=== PATIENT | male | born 1975 ===

== ENCOUNTER 2025-02-26 13:36 | Inpatient (IN) | payer OTHER, SELFPAY ==
[2025-02-26] VITALS (13 sets, daily range): BP systolic 67–134; BP diastolic 25–87; PULSE 80–140; RESP 12–28; TEMP 36.7–37.3; O2SAT 93–100; BMI 27.4
--- NOTE | ~2025-02-26 | CT_ITS ---
CLINICAL HISTORY: sepsis unclear etiology CT chest without IV contrast. COMPARISON: XR chest dated 02/26/25 at 15:26 EDT FINDINGS: Thyroid nodule present along the isthmus measuring 2.0 cm. No supraclavicular or axillary lymphadenopathy. Normal chest wall. Ascending aorta and main pulmonary artery are normal in caliber. No pericardial effusion. Normal esophagus. No mediastinal lymphadenopathy. No pleural effusion. Minimal atelectasis along the posterior lower lobes. Trachea and central airways are clear. No significant bronchial wall thickening. No bronchiectasis. Visualized portions of the upper abdomen are unremarkable. Flowing marginal osteophytes along the midthoracic spine. No acute fracture or suspicious bone lesion. IMPRESSION: 1. Minimal atelectasis along the posterior lower lobes. 2. Thyroid nodule measuring up to 2.0 cm. Recommend correlation with nonemergent thyroid ultrasound if not already performed. This document has been electronically signed by: Chandu Wilcox MD on 02/26/2025 16:45:10
--- NOTE | ~2025-02-26 | XR_ITS ---
CLINICAL HISTORY: tachycardic, altered. Single view of the chest. COMPARISON: None FINDINGS: Right IJ central venous line tip terminates proximal SVC. Low lung volumes. Borderline cardiomegaly. Bronchial wall thickening. No pleural effusion. No pneumothorax. No acute fracture. IMPRESSION: 1. Low lung volumes. 2. Bronchial wall thickening. Nonspecific finding can be seen with pulmonary edema or a multifocal infectious or inflammatory process. This document has been electronically signed by: Chandu Wilcox MD on 02/26/2025 15:56:55
--- NOTE | ~2025-02-26 | CT_ITS ---
CLINICAL HISTORY: sepsis unclear etiology CT abdomen and pelvis without IV contrast. COMPARISON: None FINDINGS: Minimal atelectasis along the lung bases. Normal gallbladder. Liver is enlarged with right lobe measuring 19.1 cm. Noncontrast appearance of the spleen, pancreas and adrenal glands are unremarkable. Right renal cystic lesion measuring 2.0 cm. No hydronephrosis or hydroureter. No renal or ureteral calculus. Appendix is not definitively identified. Mild colonic diverticulosis without evidence of diverticulitis. No mesenteric or retroperitoneal lymphadenopathy. Normal abdominal aorta. Adame catheter present within the contracted urinary bladder. No inguinal lymphadenopathy. Small fat containing umbilical hernia. Mild lower lumbar spondylosis. No acute fracture or suspicious bone lesion. IMPRESSION: 1. No acute intra-abdominal or pelvic findings. No evidence of bowel obstruction. No evidence of renal obstruction. 2. Colonic diverticulosis without evidence of diverticulitis. This document has been electronically signed by: Chandu Wilcox MD on 02/26/2025 16:46:48
--- NOTE | ~2025-02-26 | XR_ITS ---
CLINICAL HISTORY: hypoxia Chest radiograph, 1 view Comparison: CR - XR CHEST 1V - 02/26/25 15:26 EDT Findings: The cardiomediastinal silhouette is not enlarged. Pulmonary vascularity is unremarkable. No focal consolidation or effusion. No pneumothorax. Unchanged right IJ line. IMPRESSION: No acute cardiopulmonary findings. This document has been electronically signed by: Carlin Max DO on 02/27/2025 12:35:27
--- NOTE | ~2025-02-26 | CT_ITS ---
CLINICAL HISTORY: ams noin focal CT head without contrast. COMPARISON: None FINDINGS: The visualized paranasal sinuses are clear. The mastoid air cells are clear. No calvarial fracture. No evidence for mass or mass effect. No intracranial hemorrhage or abnormal extra-axial fluid collection. No evidence of hydrocephalus. The basilar cisterns are patent. Posterior fossa appears unremarkable. IMPRESSION: 1. No acute intracranial findings. This document has been electronically signed by: Chandu Wilcox MD on 02/26/2025 16:47:45
--- NOTE | 2025-02-26 13:47 | ECG_ITS ---
Test Reason : Overdose Blood Pressure : */* mmHG Vent. Rate : 122 BPM Atrial Rate : 122 BPM P-R Int : 160 ms QRS Dur : 92 ms QT Int : 326 ms P-R-T Axes : 58 -23 32 degrees QTcB Int : 464 ms Sinus tachycardia Minimal voltage criteria for LVH, may be normal variant ( R in aVL ) Nonspecific ST abnormality Abnormal ECG No previous ECGs available Referred By: Keith oGnzales Electronically Signed By: Mukul Martins
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
--- NOTE | 2025-02-26 13:57 | PC.NURSE ---
PT BELONGINGS one bag locked in [facility] port shelf 2
[2025-02-26] MEDS: Lactated Ringers 1,000 ML 999 ML IV ×4 (14:00→14:50)
[2025-02-26 14:02] LABS: MANUAL DIFF FLAG NO
[2025-02-26 14:09] LABS: Basophils Absolute Auto 0.1 X10*3/uL (0.0-0.2); Basophils Percent Auto 0.3 % (0-2); Eosinophils Percent Auto 0.2 % (0-4); Hematocrit 45.6 % (42.0-52.0); Imm Gran Abs Auto 0.19 X10*3/uL (0.00-0.03); Imm Gran Pct Auto 1.2 % (0.0-0.4); Lymphocytes Absolute Auto 3.1 X10*3/uL (1.2-4.9); Lymphocytes Percent Auto 19.7 % (20-40); Mean Corpuscular HGB Conc 32.9 g/dl (31.0-36.0); Mean Corpuscular Volume 94.2 fL (80.0-98.0); Mean Platelet Volume 11.4 fL (9.4-12.4); Monocytes Absolute Auto 0.9 X10*3/uL (0.1-1.2); Neutrophils Absolute Auto 11.4 x10*3/uL (2.0-8.3); Neutrophils Percent Auto 72.6 % (45-73); Platelet Count 246 X10*3/uL (160-400); Red Blood Count 4.84 X10*6/uL (4.60-5.80); Red Cell Distribution Width 13.3 % (11.0-16.0); White Blood Count 15.7 X10*3/uL (4.8-10.8)
[2025-02-26 14:31] LABS: Salicylate < 5.0 mg/dL (15-30)
[2025-02-26 14:37] LABS: Troponin-I High Sensitivity 26.3 ng/L (<3.5-35.0)
[2025-02-26 14:43] LABS: Alanine Aminotransferase 27 U/L (0-40); Albumin Level 4.9 g/dL (3.5-5.0); Alkaline Phosphatase 74 U/L (39-117); Anion Gap 32 (12-20); Aspartate Amino Transferase 34 U/L (5-37); Bilirubin Total 0.4 mg/dL (0.0-1.0); Blood Urea Nitrogen 19 mg/dL (9-16); Calcium 9.2 mg/dL (8.4-10.2); Carbon Dioxide 6 mmol/L (22-29); Chloride 107 mmol/L (96-108); Creatinine Clr Calc Pharmacy 56.3; Estimated Glomerular Filt Rate 45; Ethanol < 10 mg/dL; Glucose Random 187 mg/dL (60-115); Magnesium 3.6 mg/dL (1.6-2.6); Potassium 4.8 mmol/L (3.3-5.1); Sodium 140 mmol/L (135-145); Thyroid Stimulating Hormone 2.05 uIU/mL (0.32-4.0); Total Protein 7.9 g/dL (6.5-8.0)
[2025-02-26 14:45] LABS: C Reactive Protein < 0.10 mg/dL (< or = 0.50)
[2025-02-26] MEDS: Piperacillin Sodium/Tazobactam 3.375 GM in 0.9 % Sodium Chloride 50 ML IV (14:49)
[2025-02-26] MEDS: vancomycin/NS 2,000 MG/500 ML PLAST..BAG 250 MG IV (14:50)
[2025-02-26] MEDS: Sodium Bicarbonate 8.4% 50 MEQ/50 ML SYRINGE IVPUSH (14:57)
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
[2025-02-26] MEDS: diazePAM 10 MG/2 ML CARTRIDGE 5 MG IVPUSH (15:05)
--- NOTE | 2025-02-26 15:16 | PC.NURSE ---
Valium given and RIJ central line placed without difficulty. Patient tolerated procedure well.
[2025-02-26 15:18] LABS: Amphetamine Screen Urine Not Detected (Not Detect); Barbiturates, Urine Not Detected (Not Detect); Benzodiazepines Screen Urine POSITIVE (Not Detect); Buprenorphine Scr Not Detected (Not Detect); Cannabinoid Screen Urine Not Detected (Not Detect); Cocaine Screen Urine POSITIVE (Not Detect); Fentanyl, urine Not Detected (Not Detect); Methadone Screen, Urine Not Detected (Not Detect); Opiate Screen Urine Not Detected (Not Detect); Oxycodone Screen Urine Not Detected (Not Detect); Phencyclidine Screen Urine Not Detected (Not Detect)
[2025-02-26 15:20] LABS: Erythrocyte Sedimentation Rate 2 MM/HR (0-15)
[2025-02-26 15:22] LABS: Lactic Acid 15.7 mmol/L (0.5-2.0)
[2025-02-26 15:49] LABS: VBG Base Excess -1.4 mmol/L; VBG HCO3 23 mmol/L (22-26); VBG pCO2 39 mmHg; VBG pH 7.37 (7.32-7.43); VBG pO2 54 mmHg
[2025-02-26 15:54] LABS: Venous Blood Gas Refer to POC result
--- NOTE | 2025-02-26 16:14 | MHC.EDTECH ---
PATIENT WOULD LIKE THE RN TO CALL HIS TORREY CELL: HOME:
[2025-02-26 16:41] LABS: Anion Gap 14 (12-20); Blood Urea Nitrogen 16 mg/dL (9-16); Calcium 8.5 mg/dL (8.4-10.2); Carbon Dioxide 23 mmol/L (22-29); Chloride 112 mmol/L (96-108); Estimated Glomerular Filt Rate > 60; Glucose Random 83 mg/dL (60-115); Potassium 3.5 mmol/L (3.3-5.1); Sodium 145 mmol/L (135-145)
[2025-02-26 16:43] LABS: Lactic Acid 2.6 mmol/L (0.5-2.0)
--- NOTE | 2025-02-26 16:46 | P.HPHOSP_ITS ---
History of Present Illness Date of Service: 02/26/25 Chief Complaint: Seizure 50-year-old man presented to the ER obtunded. Patient was found in a hotel and with Sher running around naked and confused and was tackled by staff and/or police. Patient was given Valium. He presented obtunded to the ER with hypotension, lactic acidosis of 15.7, bicarb of 6, blood pressure as low as 67/27. He was given 4 L of IV fluids with almost complete resolution of lab abnormalities. Patient was able to be interviewed, he was much more awake but he stated that he does not remember what happened today. He reports that he went to the hotel yesterday because he was fighting with his . Apparently in the hotel there was drug paraphernalia found and he received admitted but did not confirm what type of drugs he was using. In speaking with his she was unaware of this situation, she denied knowing of any drug use but stated that the patient has been very depressed and sometimes she will hear him talking to himself alone. Patient was started on vancomycin and Zosyn empirically, given sodium bicarb. Plan will be to admit patient for further management and treatment of shock with hypotension likely secondary to seizure. Review of Systems 2 Review of Systems: Denies any recent fever chills or decrease in appetite respiratory denies any shortness of breath or cough cardiovascular denied chest pain gastrointestinal denies any dysphagia abdominal pain nausea vomiting or diarrhea genitourinary denies any dysuria frequency or hematuria musculoskeletal denies any joint pain or swelling neuropsych denies any weakness or seizures all other systems reviewed are negative [facility] Medical History (Updated 02/26/25 @ 17:06 by Jessika Call NP) Substance abuse Depression Surgical History (Updated 02/26/25 @ 17:06 by Jessika Call NP) History of cataract surgery Social History (System 11/30/24 @ 14:31 by Eleanor Jauregui) Advance Directives: No Advance Directives Information Provided: No Meds Allergies Allergy/AdvReac Type Severity Reaction Status Date / Time iodine [IODINE] Allergy Severe ANAPHYLAXIS Verified 02/26/25 13:50 shellfish derived Allergy Unknown ALLERGIC Verified 02/26/25 13:50 [SHELLFISH DERIVED] Active Medications: Current Medications Acetaminophen (Acetaminophen 325 Mg Tablet) 650 mg PO Q6H PRN PRN Reason: Pain, Mild 1-3,fever,headache Calcium Carbonate (Calcium Carbonate 750 Mg Tab.Chew) 750 mg PO Q4H PRN PRN Reason: Heartburn Heparin Sodium (Porcine) (Heparin Sodium,Porcine 5,000 Unit/Ml Vial) 5,000 unit SUBCUT Q12H ANNALISE Norepinephrine Bitartrate (Levophed) 8 mg in 250 mls @ 0 mls/hr IVCONT .Q0M ANNALISE; Protocol Magnesium Hydroxide (Milk Of Magnesia 30 Ml Oral.Susp) 30 ml PO DAILY PRN PRN Reason: Constipation Melatonin (Melatonin 3 Mg Tablet) 6 mg PO BEDTIME PRN PRN Reason: Insomnia Sodium Chloride (0.9 % Sodium Chloride Flush 3 Ml Syringe) 3 ml IVFLUSH QSHIFT [facility] Home Medications ?Medication ?Instructions ?Recorded ?Confirmed ?Last Taken ?Type bupropion HCl 150 mg 24 hr tablet, 150 mg PO QAM 02/26/25 Unknown History extended release timolol maleate 0.5 % eye drops 1 drp ophthalmic-Right BID 02/26/25 Unknown History Physical Exam 2 Vital Signs and Narrative: Vital Signs: Last Vital Signs Temp 98.1 F 02/26/25 16:15 Pulse 93 02/26/25 16:15 Resp 22 H 02/26/25 16:15 BP 115/77 02/26/25 16:15 Pulse Ox 97 02/26/25 16:15 O2 Del Method Nasal Cannula 02/26/25 16:15 O2 Flow Rate 3 02/26/25 16:15 BMI result Body Mass Index 27.4 Appearing in no acute distress head is normocephalic atraumatic eyes pupils are PERRLA sclera is anicteric mouth throat mucous membranes are intact and moist neck is supple no lymphadenopathy, no JVD noted lung sounds are clear to auscultation heart regular rate rhythm, clear S1, S2 positive bowel sounds, abdomen is soft, nontender neuro patient is alert x3, no focal deficits Results Labs 02/26/25 13:58 02/26/25 16:13 Labs: Laboratory Results - last 24 hr 02/26/25 02/26/25 02/26/25 13:58 14:39 15:03 MCV 94.2 MCH 31.0 MCHC 32.9 RDW 13.3 Plt Count 246 MPV 11.4 Immature Gran % (Auto) 1.2 H Neut % (Auto) 72.6 Lymph % (Auto) 19.7 L Millard % (Auto) 6.0 Eos % (Auto) 0.2 Baso % (Auto) 0.3 Lymph # (Auto) 3.1 Millard # (Auto) 0.9 Eos # (Auto) 0.0 Baso # (Auto) 0.1 Abs Immat Gran (auto) 0.19 H Absolute Neuts (auto) 11.4 H Absolute Nucleated RBC 0.000 Nucleated RBC % (auto) 0.0 ESR 2 VBG pH VBG pCO2 VBG pO2 VBG HCO3 VBG O2 Saturation VBG Base Excess Anion Gap 32 H Estim Creat Clear Calc 56.3 Estimated GFR 45 Random Glucose 187 H Lactic Acid 15.7 H* Calcium 9.2 Magnesium 3.6 H* Total Bilirubin 0.4 AST 34 ALT 27 Alkaline Phosphatase 74 Total Creatine Kinase 527 H C-Reactive Protein < 0.10 Total Protein 7.9 Albumin 4.9 TSH 2.05 Salicylates < 5.0 L Urine Opiates Screen Not Detected Ur Buprenorphine Scrn Not Detected Ur Oxycodone Screen Not Detected Urine Methadone Screen Not Detected Urine Fentanyl Screen Not Detected Ur Barbiturates Screen Not Detected Ur Phencyclidine Scrn Not Detected Ur Amphetamines Screen Not Detected U Benzodiazepines Scrn POSITIVE H Urine Cocaine Screen POSITIVE H U Marijuana (THC) Screen Not Detected Ethyl Alcohol < 10 02/26/25 02/26/25 15:42 16:13 MCV MCH MCHC RDW Plt Count MPV Immature Gran % (Auto) Neut % (Auto) Lymph % (Auto) Millard % (Auto) Eos % (Auto) Baso % (Auto) Lymph # (Auto) Millard # (Auto) Eos # (Auto) Baso # (Auto) Abs Immat Gran (auto) Absolute Neuts (auto) Absolute Nucleated RBC Nucleated RBC % (auto) ESR VBG pH 7.37 VBG pCO2 39 VBG pO2 54 VBG HCO3 23 VBG O2 Saturation 82.0 VBG Base Excess -1.4 Anion Gap 14 Estim Creat Clear Calc 76.0 Estimated GFR > 60 Random Glucose 83 Lactic Acid 2.6 H* Calcium 8.5 D Magnesium Total Bilirubin AST ALT Alkaline Phosphatase Total Creatine Kinase C-Reactive Protein Total Protein Albumin TSH Salicylates Urine Opiates Screen Ur Buprenorphine Scrn Ur Oxycodone Screen Urine Methadone Screen Urine Fentanyl Screen Ur Barbiturates Screen Ur Phencyclidine Scrn Ur Amphetamines Screen U Benzodiazepines Scrn Urine Cocaine Screen U Marijuana (THC) Screen Ethyl Alcohol Assessment and Plan (1) Cocaine intoxication: Status: Acute (2) Septic shock: Status: Acute Plan 50 year old man admitted with shock secondary to drugs and likely seizure. He was found in a Hotel, naked and confused, he was apparently tackled by staff. Seizure related shock with hypotension and obtundation no sepsis likely he had seizure and was in postictal state for EMS, he also received valium so likely exacerbation obtundation he denied hx of seizures uses cocaine Also takes Wellbutrin which can lower seizure threshold received 4 liters IV fluids in ED hypotension has resolved on empiric antibiotics, no obvious source of infection blood cx drawn more awake and alert now Seizure precautions Monitor on telemetry Lactic acidosis Likely secondary to seizure Significantly improved after IV fluids Metabolic acidosis Bicarb initially of 6, lactic acid 15.7, likely from seizure, hypotension Received 4 L of IV fluids in the ER Repeat bicarb of 23, lactic acid 2.6 Mental health with suicide ideation on Wellbutrin at home, unknown if he takes regularly Sitter ordered care team when medically clear Substance abuse addiction team consultation DVT prophylaxis with Heparin Full code Quality Stroke Does the patient have a stroke diagnosis?: No VTE Prior VTE?: No VTE Risk Level:: Medical - moderate - high VTE Device Contraindication: Treatment Not Indicated VTE Drug Contraindication: N/A - Med Ordered
[2025-02-26 16:51] LABS: Reflex Lactate? Lactic Acid Added
--- NOTE | 2025-02-26 16:56 | PHA.MEDREC ---
Addendum entered by Brooke Stallings [facility] 02/26/25 16:59: REVIEWED BY PHARMACIST Original Note: Pharmacy Consult ? Medication Reconciliation Pharmacy has completed the medication reconciliation. Spoke with Ratna over the phone with an project executive. She confirmed bupropion 150 mg daily. She said he is only using 1 eye drop bid in the right eye, he is no longer using the eye drop prescribed before his eye surgery (ketorolac).
--- NOTE | 2025-02-26 17:30 | PHA.PROG ---
Admission Date/Time: February 26, 2025 16:49 Indication: Weight in k.5 kg Adjusted body weight in Kg: [place] body weight in Kg: Obesity Dosing Indication % IBW: Serum Creatinine - Last 168 Hours 02/26/25 02/26/25 13:58 16:13 Creatinine 1.62 H 1.20 Estimated CrCl and GFR - Last 168 Hours 02/26/25 02/26/25 13:58 16:13 Estim Creat Clear Calc 56.3 76.0 Estimated GFR 45 > 60 Vancomycin Loading Dose: 2000 MG Current Vancomycin Dosing Regimen: 1000 MG Q 12 HOURS Vancomycin Monitoring using AUC goal of 400 - 600 range with trough as surrogate marker: Date and Time for next Vancomycin Level to be drawn: 02/27/25 1200 Pharmacist Comments on Vancomycin Plan: Vancomycin dosing will take advantage of Scandid as a clinical decision support tool that uses Bayesian modeling to calculate individual patient's pharmacokinetic parameters and forecast the patient's drug concentration time course with the target goal AUC 24 range of 400 - 600 mg/L/hr.
[2025-02-26 18:19] LABS: Reflex Lactate? Lactic Acid Added
[2025-02-26] MEDS: Heparin Sodium,Porcine 5,000 UNIT/ML VIAL 5000 UNIT SUBCUT (18:24)
--- NOTE | 2025-02-26 18:26 | PC.NURSE ---
Family at the bedside
[2025-02-26 18:58] LABS: ~Lactic Acid-LAB USE ONLY 1.6 mmol/L (0.5-2.0)
[2025-02-26 19:06] LABS: Reflex Lactate? 2 Y
[2025-02-26 19:40] LABS: ~Lactic Acid-LAB USE ONLY 1.8 mmol/L (0.5-2.0)
[2025-02-26] MEDS: Morphine Sulfate 2 MG/ML CARTRIDGE IVPUSH (20:45)
--- NOTE | 2025-02-26 21:28 | MHC.EDTECH ---
approx 2400ml emptied from moreira bag
--- NOTE | 2025-02-26 23:37 | PC.NURSE ---
Assumed care of this Pt at 2300.
[2025-02-27] VITALS (7 sets, daily range): BP systolic 121–144; BP diastolic 82–96; PULSE 78–93; RESP 16–20; TEMP 36.3–37.1; O2SAT 93–100; BMI 31.8
[2025-02-27] MEDS: Piperacillin Sodium/Tazobactam 3.375 GM in 0.9 % Sodium Chloride 50 ML IV ×5 (00:27→23:03)
[2025-02-27] MEDS: 0.9 % Sodium Chloride Flush 3 ML SYRINGE IVFLUSH ×4 (00:28→23:03)
[2025-02-27] MEDS: vancomycin HCL 1,000 MG in 0.9 % Sodium Chloride 250 ML 270 MG IV ×2 (01:19→15:24)
[2025-02-27 05:42] LABS: Estimated Glomerular Filt Rate > 60
[2025-02-27] MEDS: Heparin Sodium,Porcine 5,000 UNIT/ML VIAL 5000 UNIT SUBCUT ×2 (06:13→17:01)
[2025-02-27] MEDS: Acetaminophen 325 MG TABLET 650 MG PO (06:20)
--- NOTE | 2025-02-27 07:48 | PC.NURSE ---
this nurse took over patient care at 645, patient a&ox3, library monitor nsr, vss, pt currently on room air O2 st 96%. 1:1 sitter at bedside, pt states he has 7-8/10 back pain upon the reassessment of the tylenol that was given by prior shift. pt has inpt bed- report has been given and pt to be brought to room
--- NOTE | 2025-02-27 08:17 | HE.PHANOTE ---
JOYA ROGERS Patients level is due 02/27 @1200, will continue with current dose of 1000 mg Q12H. PAtients renal function has improved from yesterday. Predicted AUC 503
[2025-02-27 12:45] LABS: Vancomycin Random 10.8 mcg/mL (15-20)
--- NOTE | 2025-02-27 14:58 | MHC.RECOVRN ---
?Went to meet with pt. in room 483-1 following a consultation request received for cocaine use.? Received assistance from glass laminating operator Darwin Morgan. Pt was BIBA on 02/26 from a parking lot where he was running around unclothed. In pt's motel room police found paraphernalia of crack. Pt brought to ED for Eval. Pt was later admitted to the medical floor for?further management and treatment of shock with hypotension likely secondary to seizure. Pt was in bed awake and alert and appeared comfortable. Pt reports that he was at a hotel drinking and had a Mental Health episode which led him to not remember a lot. His tox screen was positive for cocaine and pt. admits that he could have possibly used this and just does not remember.? He reported he used to use cocaine in the past but has not used it for many years. Pt accepted a folder of resources for LELAND.? He declined any harm reduction supplies stating that it was a one time thing . Patient declines MStUD initiation?and declines appt for outpatient LELAND treatment. Information was left and pt will reach out for any other needs. Denies any further needs at this time. Report to nurse Becerril. T/W available PRN
--- NOTE | 2025-02-27 15:56 | MHC.CM.PN ---
Addendum entered by Desire Loving 02/27/25 16:05: PCP IS DR ZAHIDA BRAGA Original Note: Patient BIBA DX OD cocaine use Patient lives with SO. He is independent with all functional mobility. A new HCP has been documented. DP Home self care. Recovery nurse has provided community resource information. SO will provide transportation home.
[2025-02-28] MEDS: vancomycin HCL 1,000 MG in 0.9 % Sodium Chloride 250 ML 270 MG IV (02:20)
[2025-02-28 04:00] VITALS: BP 127/88; PULSE 69; RESP 16; TEMP 36.8; O2SAT 98
[2025-02-28] MEDS: Piperacillin Sodium/Tazobactam 3.375 GM in 0.9 % Sodium Chloride 50 ML IV ×2 (05:22→11:23)
[2025-02-28] MEDS: Heparin Sodium,Porcine 5,000 UNIT/ML VIAL 5000 UNIT SUBCUT (05:40)
[2025-02-28 07:03] LABS: Creatinine Clr Calc Pharmacy 90.7; Estimated Glomerular Filt Rate > 60
[2025-02-28 08:00] VITALS: BP 134/97; PULSE 74; RESP 16; TEMP 36.4; O2SAT 95
--- NOTE | 2025-02-28 08:54 | P.PNIM_ITS ---
Subjective Subjective Date of Service: 02/27/25 Review of Systems Follow up Seizure and hypotension better, more awake and aware sitter in room Physical Exam 2 Vital Signs: Vital Signs: Last Vital Signs Temp 98.2 F 02/28/25 04:00 Pulse 74 02/28/25 08:00 Resp 16 02/28/25 08:00 BP 134/97 H 02/28/25 08:00 Pulse Ox 95 02/28/25 08:00 O2 Del Method Room Air 02/28/25 04:00 O2 Flow Rate 4 02/27/25 05:51 BMI result Body Mass Index 31.8 Appearing in no acute distress lung sounds are clear to auscultation heart regular rate rhythm, clear S1, S2 positive bowel sounds, abdomen is soft, nontender neuro patient is alert x3, no focal deficits Objective Data Active Medications Acetaminophen (Acetaminophen 325 Mg Tablet) 650 mg PO Q6H PRN PRN Reason: Pain, Mild 1-3,fever,headache Last Admin: 02/27/25 06:20 Dose: 650 mg Documented By: TICO Calcium Carbonate (Calcium Carbonate 750 Mg Tab.Chew) 750 mg PO Q4H PRN PRN Reason: Heartburn Heparin Sodium (Porcine) (Heparin Sodium,Porcine 5,000 Unit/Ml Vial) 5,000 unit SUBCUT Q12H [facility] Last Admin: 02/28/25 05:40 Dose: 5,000 unit Documented By: YAZ Vancomycin HCl 1,000 mg/ (Sodium Chloride) 270 mls @ 270 mls/hr IV Q12H [facility] Last Infusion: 02/28/25 03:21 Dose: Infused Documented By: YAZ Piperacillin Sod/Tazobactam (Sod 3.375 gm/ Sodium Chloride) 50 mls @ 100 mls/hr IV Q6H [facility] Last Infusion: 02/28/25 05:52 Dose: Infused Documented By: YAZ Magnesium Hydroxide (Milk Of Magnesia 30 Ml Oral.Susp) 30 ml PO DAILY PRN PRN Reason: Constipation Melatonin (Melatonin 3 Mg Tablet) 6 mg PO BEDTIME PRN PRN Reason: Insomnia Pharmacy Consult (Consult Rx Vancomycin Dosing) 1 each MISCELLANE DAILY PRN PRN Reason: Consult order Sodium Chloride (0.9 % Sodium Chloride Flush 3 Ml Syringe) 3 ml IVFLUSH QSHIFT [facility] Last Admin: 02/27/25 23:03 Dose: 3 ml Documented By: YAZ Labs 02/26/25 13:58 02/28/25 05:40 Labs: Laboratory Results - last 24 hr 02/27/25 02/28/25 12:11 05:40 Hold Purple Top SEE NOTE Estim Creat Clear Calc 90.7 Estimated GFR > 60 Random Vancomycin 10.8 L Microbiology Microbiology Results: Microbiology 02/26/25 14:39 Blood Culture - Preliminary Blood - Venous No growth after 24 hours. 02/26/25 14:39 Blood Culture - Preliminary Blood - Venous No growth after 24 hours. Assessment and Plan (1) Cocaine intoxication: Status: Acute Plan 50 year old man admitted with shock secondary to drugs and likely seizure. He was found in a Hotel, naked and confused, he was apparently tackled by staff. Seizure related shock with hypotension and obtundation no sepsis likely he had seizure and was in postictal state for EMS, he also received valium so likely exacerbation obtundation he denied hx of seizures uses cocaine Also takes Wellbutrin which can lower seizure threshold received 4 liters IV fluids in ED hypotension has resolved on empiric antibiotics, no obvious source of infection blood cx drawn more awake and alert now Seizure precautions Monitor on telemetry Lactic acidosis Likely secondary to seizure Significantly improved after IV fluids Metabolic acidosis Bicarb initially of 6, lactic acid 15.7, likely from seizure, hypotension Received 4 L of IV fluids in the ER Repeat bicarb of 23, lactic acid 2.6 Mental health with suicide ideation on Wellbutrin at home, unknown if he takes regularly Sitter ordered care team when medically clear Substance abuse addiction team consultation DVT prophylaxis with Heparin Full code Quality Stroke Does the patient have a stroke diagnosis?: No VTE Prior VTE?: No VTE Risk Level:: Medical - moderate - high VTE Device Contraindication: Treatment Not Indicated VTE Drug Contraindication: N/A - Med Ordered
[2025-02-28] MEDS: 0.9 % Sodium Chloride Flush 3 ML SYRINGE IVFLUSH (08:55)
--- NOTE | 2025-02-28 08:58 | P.PNIM_ITS ---
Subjective Subjective Date of Service: 02/28/25 Review of Systems Follow up Seizure and hypotension better, more awake and aware sitter in room Physical Exam 2 Vital Signs: Vital Signs: Last Vital Signs Temp 98.2 F 02/28/25 04:00 Pulse 74 02/28/25 08:00 Resp 16 02/28/25 08:00 BP 134/97 H 02/28/25 08:00 Pulse Ox 95 02/28/25 08:00 O2 Del Method Room Air 02/28/25 04:00 O2 Flow Rate 4 02/27/25 05:51 BMI result Body Mass Index 31.8 Appearing in no acute distress lung sounds are clear to auscultation heart regular rate rhythm, clear S1, S2 positive bowel sounds, abdomen is soft, nontender neuro patient is alert x3, no focal deficits Objective Data Active Medications Acetaminophen (Acetaminophen 325 Mg Tablet) 650 mg PO Q6H PRN PRN Reason: Pain, Mild 1-3,fever,headache Last Admin: 02/27/25 06:20 Dose: 650 mg Documented By: TICO Calcium Carbonate (Calcium Carbonate 750 Mg Tab.Chew) 750 mg PO Q4H PRN PRN Reason: Heartburn Heparin Sodium (Porcine) (Heparin Sodium,Porcine 5,000 Unit/Ml Vial) 5,000 unit SUBCUT Q12H [facility] Last Admin: 02/28/25 05:40 Dose: 5,000 unit Documented By: YAZ Vancomycin HCl 1,000 mg/ (Sodium Chloride) 270 mls @ 270 mls/hr IV Q12H [facility] Last Infusion: 02/28/25 03:21 Dose: Infused Documented By: YAZ Piperacillin Sod/Tazobactam (Sod 3.375 gm/ Sodium Chloride) 50 mls @ 100 mls/hr IV Q6H [facility] Last Infusion: 02/28/25 05:52 Dose: Infused Documented By: YAZ Magnesium Hydroxide (Milk Of Magnesia 30 Ml Oral.Susp) 30 ml PO DAILY PRN PRN Reason: Constipation Melatonin (Melatonin 3 Mg Tablet) 6 mg PO BEDTIME PRN PRN Reason: Insomnia Pharmacy Consult (Consult Rx Vancomycin Dosing) 1 each MISCELLANE DAILY PRN PRN Reason: Consult order Sodium Chloride (0.9 % Sodium Chloride Flush 3 Ml Syringe) 3 ml IVFLUSH QSHIFT [facility] Last Admin: 02/27/25 23:03 Dose: 3 ml Documented By: YAZ Labs 02/26/25 13:58 02/28/25 05:40 Labs: Laboratory Results - last 24 hr 02/27/25 02/28/25 12:11 05:40 Hold Purple Top SEE NOTE Estim Creat Clear Calc 90.7 Estimated GFR > 60 Random Vancomycin 10.8 L Microbiology Microbiology Results: Microbiology 02/26/25 14:39 Blood Culture - Preliminary Blood - Venous No growth after 24 hours. 02/26/25 14:39 Blood Culture - Preliminary Blood - Venous No growth after 24 hours. Assessment and Plan (1) Cocaine intoxication: Status: Acute Plan 50 year old man admitted with shock secondary to drugs and likely seizure. He was found in a Hotel, naked and confused, he was apparently tackled by staff. Mental health with suicide ideation on Wellbutrin at home, unknown if he takes regularly Sitter care team>plan for IPLOC, bedsearch Seizure related shock with hypotension and obtundation. Resolved no sepsis likely he had seizure and was in postictal state for EMS, he also received valium so likely exacerbation obtundation he denied hx of seizures uses cocaine Also takes Wellbutrin which can lower seizure threshold received 4 liters IV fluids in ED hypotension has resolved on empiric antibiotics, no obvious source of infection blood cx negative more awake and alert now Seizure precautions, no seizures during admission Lactic acidosis Likely secondary to seizure Significantly improved after IV fluids Metabolic acidosis Bicarb initially of 6, lactic acid 15.7, likely from seizure, hypotension Received 4 L of IV fluids in the ER Repeat bicarb of 23, lactic acid 2.6 Substance abuse addiction team consultation DVT prophylaxis with Heparin Full code Quality Stroke Does the patient have a stroke diagnosis?: No VTE Prior VTE?: No VTE Risk Level:: Medical - moderate - high VTE Device Contraindication: Treatment Not Indicated VTE Drug Contraindication: N/A - Med Ordered
--- NOTE | 2025-02-28 12:11 | PM.DS ---
DS: Providers Provider Date of Service: 02/28/25 Date of admission: 02/26/25 16:49 Date of discharge: 02/28/25 Primary care physician: Unknown Physician Consults: 02/26/25 17:04 Addiction Medicine Provider Routine Consulting Provider: Addiction Covering Reason for consultation: cocaine use 02/26/25 17:14 Consult for Sitter Routine Reason for consultation: SI Has provider been notified: No 02/27/25 11:13 Inpt CARE Team Crisis Consult Routine Comment: Reason for consultation: depression, SI, auditory hallucinations DS: Diagnosis Discharge Diagnosis (1) Cocaine intoxication: Status: Acute DS: Summary Hospital Course Hospital Course: 50-year-old man presented to the ER obtunded. Patient was found in a hotel and with [place] running around naked and confused and was tackled by staff and/or police. Patient was given Valium. He presented obtunded to the ER with hypotension, lactic acidosis of 15.7, bicarb of 6, blood pressure as low as 67/27. He was given 4 L of IV fluids with almost complete resolution of lab abnormalities. Patient was able to be interviewed, he was much more awake but he stated that he does not remember what happened today. He reports that he went to the hotel yesterday because he was fighting with his . Apparently in the hotel there was drug paraphernalia found and he received admitted but did not confirm what type of drugs he was using. In speaking with his she was unaware of this situation, she denied knowing of any drug use but stated that the patient has been very depressed and sometimes she will hear him talking to himself alone. Patient was started on vancomycin and Zosyn empirically, given sodium bicarb. Plan will be to admit patient for further management and treatment of shock with hypotension likely secondary to seizure. Seizure related shock with hypotension and obtundation. no sepsis, likely he had seizure and was in postictal state for EMS, he also received valium so likely exacerbation obtundation he denied hx of seizures , uses cocaine. Also takes Wellbutrin which can lower seizure threshold, received 4 liters IV fluids in ED,hypotension resolved fairly quickly after IV fluids. Treated with empiric antibiotics, no obvious source of infection, stopped. blood cx negative.b no seizures during admission Mental health with suicide ideation, on Wellbutrin at home, unknown if he takes regularly, stopped. plan to transfer to [facility] Lactic acidosis, Likely secondary to seizure, Significantly improved after IV fluids Metabolic acidosis, Bicarb initially of 6, lactic acid 15.7, likely from seizure, hypotension, Received 4 L of IV fluids in the ER, Repeat bicarb of 23, lactic acid 2.6 Substance abuse, addiction team consultation Time Attestation Discharge Coordination Time (in mins): 42 Quality: Safe Use of Opioids Does Pt have an Active Cancer Diagnosis on the Problem List?: No Quality: Stroke Does the patient have a stroke diagnosis?: No Physical Exam Vital Signs: Vital Signs: Last Vital Signs Temp 97.5 F 02/28/25 08:00 Pulse 74 02/28/25 08:00 Resp 16 02/28/25 08:00 BP 134/97 H 02/28/25 08:00 Pulse Ox 95 02/28/25 08:00 O2 Del Method Room Air 02/28/25 04:00 O2 Flow Rate 4 02/27/25 05:51 BMI result Body Mass Index 31.8 Appearing in no acute distress head is normocephalic atraumatic eyes pupils are PERRLA sclera is anicteric mouth throat mucous membranes are intact and moist neck is supple no lymphadenopathy, no JVD noted lung sounds are clear to auscultation heart regular rate rhythm, clear S1, S2 positive bowel sounds, abdomen is soft, nontender neuro patient is alert x3, no focal deficits DS: Data Data Completed and Pending Labs on day of discharge: Laboratory Results - last 24 hr 02/27/25 02/28/25 12:11 05:40 Hold Purple Top SEE NOTE Creatinine 1.02 Estim Creat Clear Calc 90.7 Estimated GFR > 60 Random Vancomycin 10.8 L Preliminary micro results at discharge 02/26/25 14:39 Blood Culture - Preliminary Blood - Venous No growth after 24 hours. 02/26/25 14:39 Blood Culture - Preliminary Blood - Venous No growth after 24 hours. Discharge Plan Discharge Anticipated Discharge Date/Time: 02/28/25 12:08 Patient Disposition: Xfer Psychiatric Hosp Discharge Diagnosis: Seizure related shock Hypotension Obtundation Lactic acidosis Metabolic acidosis Suicidal ideation Discharge Medications: Continued timolol maleate 0.5 % drops 1 drp ophthalmic-Right BID Discontinued bupropion HCl 150 mg tablet extended release 24 hr 150 mg PO QAM Discharge Orders: Discharge Order (Routine); Ordered 02/28/25 Ordered By: Jessika Call Diet: Advance to usual diet Activity on Discharge: As tolerated Stand Alone Forms: Patient Portal Discharge page Print Language: [place]ese Care Plan Goals: Transferred to for behavioral health care Health Concerns: Seizure related shock Hypotension Obtundation Lactic acidosis Metabolic acidosis Suicidal ideation Plan of Treatment: Follow-up with primary care provider as needed Take all medications as prescribed Assessment: See discharge summary
[2025-02-28 12:35] LABS: Vancomycin Random 10.8 mcg/mL (15-20)
--- NOTE | 2025-02-28 12:54 | MHC.CM.PN ---
PT TRANSFERRED TO [facility]
--- NOTE | 2025-02-28 15:56 | P.CDIM_ITS ---
PROVIDER RESPONSE TEXT: To clarify, the appropriate diagnosis supported by the clinical indicators: Acute QUERY TEXT: PHYSICIAN'S DOCUMENTATION REQUEST Date of Query: 02/28/2025 08:17 AM EDT Patient Name: Arie Chavis Admit Date: 02/26/2025 Dear Jessika Call BIOPROCESS ENGINEER, A review of the medical record indicates additional documentation may be needed. Please review below and update the documentation accordingly. Clinical Indicators: H&P 02/26/25 - Metabolic acidosis Bicarb initially of 6, lactic acid 15.7, likely from seizure, hypotension. Received 4 L of IV fluids in the ER. Clarify which of the following accurately represents the acuity of the Metabolic acidosis: Possible options might include: Acute Chronic Other (explain) Clinically unable to determine (explain) Thank you, Pam Kyle, CCS, CDIS Use of terms such as suspected, likely, concern for, or probable (associated with a specific diagnosi s that is being evaluated, monitored, or treated as if it exists) are acceptable and can be coded in the inpatient se tting, when documented at the time of discharge. Please use your independent medical judgment in providing your response. THIS QUERY IS PART OF THE PERMANENT MEDICAL RECORD
== END 2025-02-28 14:29 | DRG 816 ==
LOC: HO.ED 14:54 → HO.EDOVER 16:52 → HO.IMC 02-27 07:12 → HO.S3 02-27 15:10
PROVIDERS: Admitting Provider Nurse Practitioner Acute Care; Emergency Provider Emergency Medicine; PCP Internal Medicine; Visit Provider Nurse Practitioner Acute Care
DX: T40.5X1A Poisoning by cocaine, accidental (unintentional), initial encounter (principal); R57.9 Shock, unspecified; F32.A Depression, unspecified; R45.851 Suicidal ideations; F14.129 Cocaine abuse with intoxication, unspecified; R56.9 Unspecified convulsions; Z79.899 Other long term (current) drug therapy
CPT/HCPCS: 36415; 70450; 71045; 71250; 74176; 80048; 80053; 80179; 80202; 80307; 82550; 82565; 82803; 83605; 83735; 84443; 84484; 85025; 85652; 86140; 87040; 93005; 99285; J1644; J2270; J2543; J3360; J3370; J7120; S9485

== ENCOUNTER → 2025-02-26 13:47 | Outpatient (BNV) | payer OTHER, SELFPAY | PROVIDERS: Emergency Provider Emergency Medicine; Visit Provider Radiology Diagnostic Radiology | DX: K57.30 Diverticulosis of large intestine without perforation or abscess without bleeding (principal); E04.1 Nontoxic single thyroid nodule; R41.82 Altered mental status, unspecified; J98.4 Other disorders of lung; J98.09 Other diseases of bronchus, not elsewhere classified | CPT/HCPCS: 70450; 71045; 71250; 74176 ==

== ENCOUNTER → 2025-02-26 13:47 | Outpatient (BNV) | payer OTHER, SELFPAY | PROVIDERS: Admitting Provider Nurse Practitioner Acute Care; Emergency Provider Emergency Medicine; Visit Provider Internal Medicine Cardiovascular Disease | DX: R00.0 Tachycardia, unspecified (principal) | CPT/HCPCS: 93010 ==

== ENCOUNTER 2025-02-26 16:49 | Outpatient (BNV) | payer OTHER, SELFPAY | END 2025-02-27 11:50 | PROVIDERS: Admitting Provider Nurse Practitioner Acute Care; Emergency Provider Emergency Medicine; Visit Provider Radiology Diagnostic Radiology | DX: R09.02 Hypoxemia (principal) | CPT/HCPCS: 71045 ==

== ENCOUNTER → 2025-02-26 16:49 | Outpatient (BNV) | payer OTHER, SELFPAY | PROVIDERS: Admitting Provider Nurse Practitioner Acute Care; Emergency Provider Emergency Medicine; Visit Provider Nurse Practitioner Acute Care | DX: A41.9 Sepsis, unspecified organism (principal); R65.21 Severe sepsis with septic shock; F14.929 Cocaine use, unspecified with intoxication, unspecified | CPT/HCPCS: 99223; 99232; 99239 ==

== ENCOUNTER 2025-02-28 14:34 | Inpatient (IN) | payer OTHER, SELFPAY ==
--- OUTSIDE RECORDS SUMMARY | 2025-02-28 14:37 | XMS_ITS | Clinical Summary ---
Author Organization [facility] Address [address] [place] [address] Phone Care Team Providers Care Rug Measurer Name Role Phone Holli Adames MD Primary Care Provider [phone] Allergies No known active allergies Medications buPROPion XL (WELLBUTRIN XL) 150 mg 24 hr tablet Take 1 tablet (150 mg total) by mouth 1 (one) time each day in the morning. Do not crush, chew, or split. 90 each 1 12/20/2024 Active Active Problems Problem Noted Date Diagnosed Date Family history of diabetes mellitus 02/14/2025 Depression 02/14/2025 Elevated BP without diagnosis of hypertension Posterior subcapsular polar age-related cataract of right eye 02/14/2025 Prediabetes 01/16/2025 Recurrent major depressive d isorder, in partial remission ([facility] V24) 01/16/2025 Cataract 01/16/2025 Encounters Date Type Department Care Team Description 02/14/2025 12:30 PM EDT Consult Adult Medicine [address] [phone] Erwin Horan MD Preop examination (Primary Dx); Depression, unspecified depression type; Prediabetes; Family history of diabetes mellitus; Elevated BP without diagnosis of hypertension 01/25/2025 Telephone Adult Medicine [address] [phone] Holli Adames MD Forms/questionnaires ([facility]) 01/16/2025 8:00 AM EDT Office Visit [address] [phone] Leah Farrell PA Recurrent major depressive disorder, in partial remission ([facility] V24) (Primary Dx); Elevated BP without diagnosis of hypertension; Vision loss, right eye; Prediabetes 12/16/2024 9:30 AM EDT Office Visit [address] [phone] Holli Adames MD Elevated BP without diagnosis of hypertension (Primary Dx); Recurrent major depressive disorder, in partial remission ([facility] V24); Vision loss, right eye 12/16/[address] [phone] Holli Adames MD from Last 3 Months Surgical History Surgery Date Site/Laterality Comments APPENDECTOMY TONSILLECTOMY NASAL SEPTUM SURGERY Medical History Medical History Date Comments Patient denies medical problems Family History Medical History Relation Name Comments heart transplant Brother Endocarditi s Heart attack Father Hypertension Father Hypertension Mother Relation Name Status Comments Brother Father Mother Social History Tobacco Use Types Packs/Day Years Used Date Smoking Tobacco: Never Passive Smoke Exposure: Never Smokeless Tobacco: Never Tobacco Cessation:Counseling Given: Not Answered Alcohol Use Standard Drinks/Week Comments Not Currently 0 (1 standard drink = 0.6 oz pur e alcohol) Sex and Gender Information Value Date Recorded Sex Assigned at Not on file Legal Sex Male 11:41 AM EDT Gender Identity Male 10/09/2024 8:24 AM EST Sexual Orientation Not on file Obstetrics History Last Filed Vital Signs Vital Sign Reading Time Taken Comments Blood Pressure 136/84 02/14/2025 12:23 PM EDT Pulse 80 02/14/2025 12:23 PM EDT Temperature 36.5 ??C (97.7 ??F) 02/14/2025 12:23 PM E DT Respiratory Rate 16 02/14/2025 12:23 PM EDT Oxygen Saturation 94% 10/09/2024 5:28 AM EST Inhaled Oxygen Concentration - - Weight 89.4 kg (197 lb) 02/14/2025 12:23 PM EDT Height 167.6 cm (5' 6 ) 02/14/2025 12:23 PM EDT Body Mass Index 31.8 02/14/2025 12:23 PM EDT Plan of Treatment Upcoming Encounters Date Type Department Care Team (Late st Contact Info) Description 04/20/2025 7:30 AM EDT Office Visit Adult Medicine [address] [phone] Holli Adames MD [address] [place] [address] 07/25/2025 9:30 AM EDT Office Visit Adult [address] [phone] Holli Adames MD [address] [place] [address] [phone] Health Maintenance Due Date Last Done Comments DTaP,Tdap,and Td Vaccines (1 - Tdap) 1994 Hepatitis B Vaccines (1 of 3 - 19+ 3-dose series) 1994 COVID-19 Vaccine ( - 2023-2 5 season) 2024 Colorectal Cancer Screening: Colonoscopy 07/30/2024 HIV Screening 07/30/2024 Hepatitis C Screening 07/30/2024 Social Influencers of Health Screening 07/30/2024 Pneumococcal Vaccine: 50+ Ye ars (1 of 1 - PCV) 2025 Zoster Vaccines (1 of 2) 2025 Influenza Vaccine (Season Ended) 2025 Depression Screening 02/13/2026 02/13/2025 Cholesterol Screening (Lipid Panel) 12/16/2029 12/16/2024 HIB Vaccines Aged Out No longer eligi ble based on patient's age to complete this topic HPV Vaccines Aged Out No longer eligi ble based on patient's age to complete this topic Hepatitis A Vaccines Aged Out No long er eligible based on patient's age to complete this topic IPV Vaccines Aged Out No longer eligi ble based on patient's age to complete this topic MMR Vaccines Aged Out No longer eligi ble based on patient's age to complete this topic Meningococcal ACWY Vaccine Aged Out N o longer eligible based on patient's age to complete this topic Meningococcal B Vaccine Aged Out No l onger eligible based on patient's age to complete this topic Pneumococcal Vaccine: Pediat rics (0 to 5 Years) and At-Risk Patients (6 to 64 Years) Aged Out No longer eligi ble based on patient's age to complete this topic RSV Immunization Patients Un victor manuel 20 months Aged Out No longer eligible b ased on patient's age to complete this topic Varicella Vaccines Aged Out No longer eligible based on patient's age to complete this topic Procedures Procedure Name Priority Date/Time Associated Diagnosis Comments EXTERNAL NON-DIABETIC EYE EXAM Routine 01/20/2025 2:27 PM EDT CBC WITH AUTO DIFFERENTIAL Routine 12/16/2024 11:23 AM EDT Elevated BP without diagnosis of hypertension HEMOGLOBIN A1C Routine 12/16/2024 11:23 AM EDT Elevated BP without diagnosis of hypertension CBC AND DIFFERENTIAL Routine 12/16/2024 11:23 AM EDT Elevated BP without diagnosis of hypertension COMPREHENSIVE METABOLIC PANEL Routine 12/16/2024 11:23 AM EDT Elevated BP without diagnosis of hypertension LIPID PANEL WITH REFLEX TO DIRECT LDL Routine 12/16/2024 11:23 AM EDT Elevated BP without diagnosis of hypertension from Last 3 Months Results * External Non-Diabetic Eye Exam Report (01/20/2025 2:27 PM EDT) Anatomical Region Laterality Modality Ultrasound us Historical Provider IMRobert US PROCEDURES Final R esult * Lipid panel with reflex to direct LDL (12/16/2024 11:23 AM EDT) Cholesterol 176 0 - 200 mg/dL LAB CHEMISTRY METHOD 12/16/2024 4:01 PM EDT [facility] Triglycerides 103 0 - 150 mg/dL LAB CHEMISTRY METHOD 12/16/2024 4:01 PM EDT [facility] HDL 55 >=40 mg/dL LAB CHEMISTRY METHOD 12/16/2024 4:01 PM EDT [facility] LDL Calculated 100 0 - 100 mg/dL LAB CHEMISTRY METHOD 12/16/2024 4:01 PM EDT [facility] VLDL Cholesterol Aries 20.6 mg/dL LAB CHEMISTRY METHOD 12/16/2024 4:01 PM EDT [facility] Non HDL Chol. (LDL+VLDL) 121 <145 mg/dL LAB CHEMISTRY METHOD 12/16/2024 4:01 PM EDT [facility] Chol/HDL Ratio 3.2 0.0 - 4.4 LAB CHEMISTRY METHOD 12/16/2024 4:01 PM EDT [facility] Blood Venous blood specimen / Unknown Venipuncture / Unknown 12/16/2024 11:23 AM EDT 12/16/2024 11:23 AM EDT us Holli Adames MD LAB BLOOD ORDERABLES Final Resul t [facility] [address] [place] [address], [place] [phone] * (ABNORMAL) CBC auto differential (12/16/2024 11:23 AM EDT) WBC 8.0 4.8 - 10.8 K/mcL LAB HEMETOLOGY METHOD 12/16/2024 12:28 PM EDT [facility] RBC 4.80 4.50 - 5.50 M/mcL LAB HEMETOLOGY METHOD 12/16/2024 12:28 PM EDT [facility] Hemoglobin 15.1 13.5 - 17.5 g/dL LAB HEMETOLOGY METHOD 12/16/2024 12:28 PM EDT [facility] Hematocrit 45.3 42.0 - 54.0 % LAB HEMETOLOGY METHOD 12/16/2024 12:28 PM EDT [facility] MCV 93.8 79.0 - 98.0 FL LAB [facility] MCH 31.3 27.0 - 32.0 pcg LAB HEMETOLOGY METHOD 12/16/2024 12:28 PM [facility] MCHC 33.3 32.0 - 37.0 g/dL LAB HEMETOLOGY METHOD 12/16/2024 12:28 PM EDT [facility] RDW 12.9 11.0 - 15.0 % LAB HEMETOLOGY METHOD 12[facility]16[facility]2024 12:[facility] Platelets 223 130 - 400 K/mcL LAB HEMETOLOGY METHOD 12/16/2024 12:28 PM [facility] MPV 11.7(H) 7.0 - 11.0 FL LAB HEMETOLOGY METHOD 12[facility]16[facility]2024 [facility] NRBC 0.0 <1.0 % LAB HEMETOLOGY METHOD 12/16/2024 12:28 PM [facility] NRBC Absolute 0.00 <0.10 K/mcL LAB HEMETOLOGY METHOD 12/16/2024 12:28 PM [facility] Neutrophils Relative 56.1 % LAB HEMETOLOGY METHOD 12/16/2024 12:28 PM [facility] Lymphocytes Relative 27.5 % LAB HEMETOLOGY METHOD 12/16[facility]2024 12:[facility] Monocytes Relative 8.9 % LAB HEMETOLOGY METHOD 12/16/2024 12:28 PM [facility] Eosinophils Relative 6.2 % LAB HEMETOLOGY METHOD 12/16/2024 12:28 PM [facility] Basophils Relative 0.9 % LAB HEMETOLOGY METHOD 12/16/2024 12:28 PM EDT [facility] Immature Granulocytes Relative 0.4 % LAB HEMETOLOGY METHOD 12/16/2024 12:28 PM EDT [facility] Neutrophils Absolute 4.47 1.50 - 7.00 K/mcL LAB HEMETOLOGY METHOD 12/16/2024 12:28 PM EDT [facility] Lymphocytes Absolute 2.19 1.00 - 5.00 K/mcL LAB HEMETOLOGY METHOD 12/16/2024 12:28 PM EDT [facility] Monocytes Absolute 0.71 0.20 - 1.00 K/mcL LAB HEMETOLOGY METHOD 12/16/2024 12:28 PM EDT [facility] Eosinophils Absolute 0.49 0.00 - 0.50 K/mcL LAB HEMETOLOGY METHOD 12/16/2024 12:28 PM EDT [facility] Basophils Absolute 0.07 0.00 - 0.20 K/mcL LAB HEMETOLOGY METHOD 12/16/2024 12:28 PM EDT [facility] Immature Granulocytes Absolute 0.03 0.00 - 0.03 K/mcL LAB HEMETOLOGY METHOD 12/16/2024 12:28 PM EDT [facility] Blood Venous blood specimen / Unknown Venipuncture / Unknown 12/16/2024 11:23 AM EDT 12/16/2024 11:23 AM EDT us Holli Adames MD LAB BLOOD ORDERABLES Final Resul t [facility] [address] [place] [address], * Hemoglobin A1c (12/16/2024 11:23 AM EDT) Hemoglobin A1C 5.7 <6.5 % LAB CHEMISTRY METHOD 12/16/2024 8:20 PM EDT [facility] Mean Bld Glu Estim. 117 mg/dL LAB CHEMISTRY METHOD 12/16/2024 8:20 PM [facility] Blood Venous blood specimen / Unknown Venipuncture / Unknown 12/16/2024 11:23 AM EDT 12/16/2024 11:23 AM EDT us Holli Adames MD LAB BLOOD ORDERABLES Final Resul t [facility] [address] [place] [address], [place] [phone] * Comprehensive metabolic panel (12/16/2024 11:23 AM EDT) Sodium 142 133 - 145 mmol/L LAB CHEMISTRY METHOD 12/16/2024 4:01 PM [facility] Potassium 4.4 3.5 - 5.5 mmol/L LAB CHEMISTRY METHOD 12/16/2024 4:01 PM [facility] Chloride 108 96 - 110 mmol/L LAB CHEMISTRY METHOD 12/16/2024 4:01 PM [facility] CO2 26 21 - 32 mmol/L LAB CHEMISTRY METHOD 12/16/2024 4:01 PM [facility] Anion Gap 8 3 - 11 LAB CHEMISTRY METHOD 12/16/2024 4:01 PM [facility] Glucose 83 70 - 100 mg/dL LAB CHEMISTRY METHOD 12/16/2024 4:01 PM [facility] BUN 12 5 - 25 mg/dL LAB CHEMISTRY METHOD 12/16/2024 4:01 PM [facility] Creatinine 0.99 0.70 - 1.30 mg/dL LAB CHEMISTRY METHOD 12/16/2024 4:01 PM [facility] eGFR 93 >=60 mL/min/1. 73m2 LAB CHEMISTRY METHOD 12/16/2024 4:01 PM [facility] Comment:Calculation based on the??Chronic Kidney Disease Epidemiology Collaboration (CKD-EPI) equation refit??without adjustment for race. BUN/Creatinine Ratio 12.1 LAB CHEMISTRY METHOD 12/16/2024 4:01 PM [facility] Calcium 9.4 8.5 - 10.5 mg/dL LAB CHEMISTRY METHOD 12/16/2024 4:01 PM [facility] AST (SGOT) 10 10 - 42 unit/L LAB CHEMISTRY METHOD 12/16/2024 4:01 PM [facility] ALT (SGPT) 21 10 - 60 unit/L LAB CHEMISTRY METHOD 12/16/2024 4:01 PM [facility] Alkaline Phosphatase 73 42 - 121 unit/L LAB CHEMISTRY METHOD 12/16/2024 4:01 PM [facility] Total Protein 7.2 6.0 - 8.0 g/dL LAB CHEMISTRY METHOD [facility] Albumin 4.1 3.2 - 5.0 g/dL LAB CHEMISTRY METHOD 12/16/2024 4:01 PM [facility] Total Bilirubin 1.0 0.0 - 1.4 mg/dL LAB CHEMISTRY METHOD 12/16/2024 4:01 PM [facility] Blood Venous blood specimen / Unknown Venipuncture / Unknown 12/16/2024 11:23 AM EDT 12/16/2024 11:23 AM EDT us Holli Adames MD LAB BLOOD ORDERABLES Final Resul t [facility] [address] [place] [address], from Last 3 Months Insurance [facility] [place] [phone] Care Teams Rug Measurer Relationship Specialty Start Date End Date Holli Adames MD [address] [place] [address] [phone] PCP - General Internal Medicine 12/16/24
--- NOTE | 2025-02-28 18:07 | PC.ADMIT ---
Arie is a 50 y/o bilingual male admitted from the medical unit on a CV for the treatment of unspecified depressive d/o. The pt was brought to medical after police found him after running around a parking lot naked. Police found crack drug paraphernalia. Pt reports he bought the drugs to try and OD on them. Pt reports he has been increasingly depressed, being off psychiatric medications for the past two years. Pt reports having future appointments with [facility], but hasn?t accessed them yet. He reports having IPLOC in [place] as far back as 1999. Pt reports having CAH telling him to harm himself prior to hospitalization. Pt was initially admitted to medical for Hyportensive event and questionable seizure activity. Pt is A&O x4, calm and cooperative. Pts mood is depressed with a congruent affect. Pt is seeking help for his depression and is open to taking medications. Pt reports that when his depression is worse he hears negative CAH and has VH of an old lady. Pt denied SI/HI/AVH at the time of admission. The thought process is linear and organized, and remains focused during the interview.? Pt reports a good appetite and no current weight loss. Pt reports racing thoughts and nightmares from childhood trauma? creates disruptive sleep for him.? Pt reports being incarcerated years ago in [place] for drugs. Pt says ?It's been four years since I used cocaine, I only bought it to try and overdose.? No known medical issues. Pt placed on 15 minute safety checks.
[2025-02-28 20:00] VITALS: BP 155/90; PULSE 82; RESP 16; TEMP 36.9; O2SAT 96
[2025-03-01 08:00] VITALS: BP 140/88; PULSE 68; RESP 16; TEMP 36.4; O2SAT 98
[2025-03-01 08:33] LABS: Estimated Average Glucose 108 mg/dL; Hemoglobin A1C 140.5969 umol/L; Hemoglobin A1c % 5.4 % (<6.0); Total Hemoglobin (HGBA1C) 3905.9299 umol/L
[2025-03-01 08:35] LABS: Alanine Aminotransferase 42 U/L (0-40); Albumin Level 4.4 g/dL (3.5-5.0); Alkaline Phosphatase 58 U/L (39-117); Anion Gap 11 (12-20); Aspartate Amino Transferase 92 U/L (5-37); Bilirubin Total 0.8 mg/dL (0.0-1.0); Blood Urea Nitrogen 12 mg/dL (9-16); Calcium 9.6 mg/dL (8.4-10.2); Carbon Dioxide 29 mmol/L (22-29); Chloride 107 mmol/L (96-108); Cholesterol 209 mg/dL (<200); Estimated Glomerular Filt Rate > 60; Glucose Random 93 mg/dL (60-115); HDL Cholesterol 58 mg/dL (>40); LDL Cholesterol Calculated 120 mg/dL (<100); Potassium 5.1 mmol/L (3.3-5.1); Sodium 142 mmol/L (135-145); Triglycerides 159 mg/dL (<150)
--- NOTE | 2025-03-01 10:02 | P.PNPSI_ITS ---
Subjective Subjective Date of Service: 03/01/25 Reason For Visit: si Interim History: pt arrived on unit at 1445 yesterday afternoon, admission orders and CV completed by Tanesha Pandey NP, also yesterday afternoon. being seen in coverage today for RONY Pandey. Hx and Sx reviewed with pt. pt seen with relocation director. pt c/o poor mood as well as AH. he reports in [place] he had been prescribed wellbutrin 150 mg daily, xanax, flurazepam, and klonopin, among other things he cannot recall. he denies any recent regular and heavy alcohol use, same for benzo use. he states that the day he overdosed his recall is hazy, and he drank and took other drugs but doesn't know what he took. urine as cocaine POS. he reports having bought cocaine with the intention of overdosing on it. he cannot recall what happened, but he was naked running around outside and the police had to tackle him to take him to the hospital. he reports he recently got plugged in with [facility] but hasn't really had an opportunity to engage with them yet. he appears most concerned about depression and AH. denies Sz D/O Hx. doesn't know if he had a Sz on his way into the hospital. reports trauma Hx. use of SSRIs for depression and anxiety/PTSD discussed, pt agrees to trial. also agreeable to use of seroquel for AH and anxiety and sleep, . aware he will work with RONY Pandey, as of tomorrow. Mental Status Exam Mental Status Exam Narrative: adequately dressed and groomed. arm tattoos. cooperative. no PMA/PMR. speech nml rate, amount, loudness. decr latency. thoughts linear and logical. affect constricted, normo-intense, non-labile. mood i don't feel well. depressed. denies SI/HI/VH. endorsing AH, coming back. Diagnostics Vital Signs (24Hr): Vital Signs - 24 hr 02/28/25 20:00 03/01/25 08:00 Temperature 98.5 F 97.5 F Pulse Rate 82 68 Respiratory Rate 16 16 Blood Pressure 155/90 H 140/88 H Pulse Oximetry 96 98 Oxygen Delivery Method Room Air Room Air Labs 03/01/25 08:08 Labs: Laboratory Results - last 48 hr 03/01/25 08:08 Sodium 142 Potassium 5.1 D Chloride 107 Carbon Dioxide 29 Anion Gap 11 L BUN 12 Creatinine 1.03 Estim Creat Clear Calc TNP Estimated GFR > 60 Random Glucose 93 Estimat Average Glucose 108 Hemoglobin A1c % 5.4 Calcium 9.6 D Total Bilirubin 0.8 AST 92 H ALT 42 H Alkaline Phosphatase 58 Total Protein 7.0 Albumin 4.4 Triglycerides 159 H Cholesterol 209 H LDL Cholesterol, Calc 120 H HDL Cholesterol 58 Medications Medications Current Medications Acetaminophen (Acetaminophen 325 Mg Tablet) 650 mg PO Q6H PRN PRN Reason: Headache/Pain, Scale 1-10 Al Hydroxide/Mg Hydroxide (Magnesium Hydrox/Alum Hydrox 30 Ml Oral.Susp) 30 ml PO Q6H PRN PRN Reason: Heartburn/Nausea Hydroxyzine HCl (Hydroxyzine Hcl 25 Mg Tablet) 25 mg PO Q6H PRN PRN Reason: mild anxiety Magnesium Hydroxide (Milk Of Magnesia 30 Ml Oral.Susp) 30 ml PO DAILY PRN PRN Reason: Constipation Nicotine Polacrilex (Nicotine Polacrilex 2 Mg Gum) 4 mg BUCCAL Q2H PRN PRN Reason: Nicotine Cravings Olanzapine (Olanzapine 5 Mg Tablet) 5 mg PO Q4H PRN PRN Reason: agitation Trazodone HCl (Trazodone Hcl 50 Mg Tablet) 50 mg PO BEDTIME MRX1 PRN PRN Reason: Insomnia Allergies Allergies Allergy/AdvReac Type Severity Reaction Status Date / Time iodine [IODINE] Allergy Severe ANAPHYLAXIS Verified 02/26/25 13:50 shellfish derived Allergy Unknown ALLERGIC Verified 02/26/25 13:50 [SHELLFISH DERIVED] Assessment & Plan Assessment & Plan (1) Depressive disorder: Status: Acute Code(s): F32.A - Depression, unspecified (2) Anxiety disorder: Status: Acute Code(s): F41.9 - Anxiety disorder, unspecified Plan start zoloft 50 mg daily. start seroquel with 50 PRN insomnia. start clonidine 0.05 TID for HTN and anxiety. Reason for continued inpatient stay Substantial Risk for: harm to self and med/psych decompensation Time Spent With Patient Time: Total time managing care of this patient today __55__ minutes.
[2025-03-01] MEDS: QUEtiapine Fumarate 25 MG TABLET PO (14:56)
[2025-03-01] MEDS: Sertraline HCL 50 MG TABLET PO (14:57)
[2025-03-01 14:58] VITALS: BP 140/93
[2025-03-01] MEDS: cloNIDine HCL 0.1 MG TABLET 0.05 MG PO ×2 (14:58→21:06)
[2025-03-01 19:45] VITALS: BP 125/72; PULSE 81; RESP 18; TEMP 36.9; O2SAT 94
[2025-03-01 21:06] VITALS: BP 134/80
[2025-03-01] MEDS: QUEtiapine Fumarate 100 MG TABLET PO (21:06)
[2025-03-02 07:00] VITALS: BMI 32.9
[2025-03-02 08:00] VITALS: BP 144/104; PULSE 76; RESP 14; TEMP 36.6; O2SAT 98
[2025-03-02 08:05] VITALS: BP 144/104
[2025-03-02] MEDS: cloNIDine HCL 0.1 MG TABLET 0.05 MG PO ×3 (08:05→20:25)
[2025-03-02] MEDS: Sertraline HCL 50 MG TABLET PO (08:05)
[2025-03-02] MEDS: QUEtiapine Fumarate 25 MG TABLET PO ×2 (08:05→14:27)
--- NOTE | 2025-03-02 11:27 | HO.PM.IMCN ---
History of Present Illness Data of Consult Service Date: 03/02/25 Primary Care Provider: None Physician HPI Reason for consult: Medical evaluation for hypertension 50-year-old male with a past medical history of seizure related shot, hypotension, recent history of lactic acidosis and metabolic acidosis, cocaine misuse, glaucoma and depression. Patient presented to the ED with hypotension and tachycardia. Found to have severe metabolic acidosis of unclear cause an elevated lactate level. [place] most likely related to seizure activity. He is now transferred to the psychiatric unit for ongoing care of depression with suicidal ideation. patient is seen today for elevated blood pressures. He reports that he was seeing his primary care in the community and was noted to have elevated blood pressures. Reports that he was going to be started on medication but this did not happen as he was hospitalized. Upon review he has had several readings of greater than 140/90. Has been getting clonidine. We will start Norvasc low-dose at HS and monitor his blood pressures. Review of Systems Review of Systems: Denies any shortness of breath, chest pain, dizziness, lightheadedness, abdominal pain or discomfort, nausea vomiting or diarrhea PMFSH Medical History (Updated 03/02/25 @ 16:02 by Nory Rodriguez DNP) Substance abuse Depression Surgical History History of cataract surgery Social History (System 11/30/24 @ 14:31 by Eleanor Jauregui) Household Members: Spouse Housing: Apartment Housing Other:: rents a rm in the basement with Do you presently have visiting nurse or other home services: No Comment: pt is bedfast Patient Tobacco Use Status: Never used Tobacco Currently Displaying Signs/Symptoms of Drug Intoxication Withdrawal: No Have you been hit, kicked, punched, or otherwise hurt by someone within the past year? If so, by whom?: No Do you feel safe in your current relationship?: Yes Is there a partner from a previous relationship who is making you feel unsafe now?: No Are you made to feel afraid or neglected: No Advance Directives: No Advance Directives Information Provided: Yes Do you have thoughts of harming others: None Do you have a plan to hurt others: No Plan Eating poorly because of decreased appetite: No Nutrition Risks: No Nutritional Risk Poor oral hygiene: No service: No Sexual orientation: Straight/Heterosexual Meds Allergies Allergy/AdvReac Type Severity Reaction Status Date / Time iodine [IODINE] Allergy Severe ANAPHYLAXIS Verified 02/26/25 13:50 shellfish derived Allergy Unknown ALLERGIC Verified 02/26/25 13:50 [SHELLFISH DERIVED] Active Medications: Current Medications Acetaminophen (Acetaminophen 325 Mg Tablet) 650 mg PO Q6H PRN PRN Reason: Headache/Pain, Scale 1-10 Al Hydroxide/Mg Hydroxide (Magnesium Hydrox/Alum Hydrox 30 Ml Oral.Susp) 30 ml PO Q6H PRN PRN Reason: Heartburn/Nausea Clonidine HCl (Clonidine Hcl 0.1 Mg Tablet) 0.05 mg PO TID [facility]; Protocol Last Admin: 03/02/25 08:05 Dose: 0.05 mg Hydroxyzine HCl (Hydroxyzine Hcl 25 Mg Tablet) 25 mg PO Q6H PRN PRN Reason: mild anxiety Magnesium Hydroxide (Milk Of Magnesia 30 Ml Oral.Susp) 30 ml PO DAILY PRN PRN Reason: Constipation Nicotine Polacrilex (Nicotine Polacrilex 2 Mg Gum) 4 mg BUCCAL Q2H PRN PRN Reason: Nicotine Cravings Olanzapine (Olanzapine 5 Mg Tablet) 5 mg PO Q4H PRN PRN Reason: agitation Quetiapine Fumarate (Quetiapine Fumarate 25 Mg Tablet) 25 mg PO BID@0900,1500 [facility] Last Admin: 03/02/25 08:05 Dose: 25 mg Quetiapine Fumarate (Quetiapine Fumarate 100 Mg Tablet) 100 mg PO BEDTIME [facility] Last Admin: 03/01/25 21:06 Dose: 100 mg Quetiapine Fumarate (Quetiapine Fumarate 50 Mg Tablet) 50 mg PO BEDTIME PRN PRN Reason: insomnia Sertraline HCl (Sertraline Hcl 50 Mg Tablet) 50 mg PO DAILY [facility] Last Admin: 03/02/25 08:05 Dose: 50 mg Home Medications ?Medication ?Instructions ?Recorded ?Confirmed ?Last Taken ?Type timolol maleate 0.5 % eye drops 1 drp ophthalmic-Right BID 02/26/25 02/28/25 Unknown History Wellbutrin XL 150 mg PO DAILY 02/28/25 02/28/25 Unknown History Physical Exam Vital Signs and Narrative: Vital Signs: Last Vital Signs Temp 97.8 F 03/02/25 08:00 Pulse 76 03/02/25 08:00 Resp 14 03/02/25 08:00 BP 144/104 H 03/02/25 08:05 Pulse Ox 98 05/29/25 08:00 O2 Del Method Room Air 03/02/25 08:00 CONST: Alert and oriented, in NAD. Well nourished HEENT: Normocephalic, atraumatic, MMM, Eyes clear, Neck supple RESP: Lungs clear, RRR even and regular HEART:,RRR, S1, S2. No murmur, no edema GI:Abdomen Soft NT, ND. + BS times four :Deferred SKIN: Warm dry and intact, no visible lesions or rashes NEURO:CN II-XII Intact bilaterally, Sensation intact. Speech clear PSYCH: Normal affect. Calm and cooperative Results Labs 03/01/25 08:08 Assessment and Plan (1) HTN (hypertension): Status: Acute Plan 50 year old man admitted with shock secondary to drugs and likely seizure. He was found in a Hotel, naked and confused, likely related to seizures. Is now transferred to the psychiatric floor for further care for depression and SI. Depression with suicide ideation Care per psychiatric team. Seizure related shock with hypotension and obtundation/Lactic-Metabolic acidosis-Resolved Most likely was found to be in a postictal state, denies any history of seizures. Actively using cocaine at time of admission. Resolved- He is at baseline mentation Substance abuse Addiction team consultation HTN Start amlodipine 2.5 mgs at bedtime.
[2025-03-02 14:27] VITALS: BP 119/76
--- NOTE | 2025-03-02 15:39 | P.HPPS_ITS ---
HPI Date of Service: 03/02/25 Chief Complaint: si Sources of Information: patient interviewed, chart reviewed and crisis/core team assessment reviewed HPI Subjective Notes: Holder Warning and Conditional Voluntary Narrative: Patient is a 50-year-old male with history of MDD, PTSD and cocaine use disorder who presented to ER via EMS from a hotel after being found running around the parking lot nude and reporting he intentionally used drugs to try to overdose. Per crisis report, patient was reportedly found nude, running around the parking lot of a hotel. Police reportedly found crack cocaine drug paraphernalia. Patient reports he intentionally use drugs to try to overdose and end his life. Upon crisis assessment patient denies SI/HI. Patient reports that he got into a verbal altercation with his and rented a hotel room. He reports increasing depression and has been off of his psychiatric medications for 2 years. He reportedly had been experiencing command auditory hallucinations telling him to harm himself. Patient reports that he began hearing voices before he use drugs and states that he has heard voices in the past when he is severely depressed. He reports poor sleep and appetite. Denies HI/VH. Patient reports 6 inpatient hospitalizations while living in [place]. History of 2 suicide attempts via overdosing on medications. History of cocaine use. He reports being sober for 3-4 years prior to his relapse. History of detox admissions. Utox positive for cocaine and benzodiazepines. During admission assessment, patient presents alert and oriented x3. Calm and cooperative. Patient reports feeling depressed; patient stated, I don't remember anything that happened. I wanted to hurt myself because of the voices. They were telling me to kill myself. When I'm depressed I start to hear voices but medication helps . Patient denies SI/HI/VH/AH. Patient reports he can not recall what occurred prior to admission. Patient stated, I have been clean for years. I don't remember anything that happened . Patient reports he has a prescriber appointment set up with [facility] in [place] in a few weeks. Past Psychiatric History: Patient reports 6 inpatient hospitalizations while living in [place]. History of 2 suicide attempts via overdosing on medications. Medical Evaluation Reviewed: Yes [facility] Medical History (Updated 03/02/25 @ 16:48 by Tanesha Pandey NP) Substance abuse Depression Surgical History History of cataract surgery Family History: Unknown Social History: Lives with . Two adult children in [place]. Unemployed. Substance History: History of cocaine use. Trauma History: Yes Diagnostics Vital Signs (24Hr): Vital Signs - 24 hr 03/01/25 19:45 03/01/25 21:06 03/02/25 08:00 Temperature 98.5 F 97.8 F Pulse Rate 81 76 Respiratory Rate 18 14 Blood Pressure 125/72 134/80 144/104 H Pulse Oximetry 94 98 Oxygen Delivery Method Room Air Room Air 03/02/25 08:05 03/02/25 14:27 Temperature Pulse Rate Respiratory Rate Blood Pressure 144/104 H 119/76 Pulse Oximetry Oxygen Delivery Method BMI result Body Mass Index 32.9 Labs 03/01/25 08:08 Labs: Laboratory Results - last 48 hr 03/01/25 08:08 Sodium 142 Potassium 5.1 D Chloride 107 Carbon Dioxide 29 Anion Gap 11 L BUN 12 Creatinine 1.03 Estim Creat Clear Calc TNP Estimated GFR > 60 Random Glucose 93 Estimat Average Glucose 108 Hemoglobin A1c % 5.4 Calcium 9.6 D Total Bilirubin 0.8 AST 92 H ALT 42 H Alkaline Phosphatase 58 Total Protein 7.0 Albumin 4.4 Triglycerides 159 H Cholesterol 209 H LDL Cholesterol, Calc 120 H HDL Cholesterol 58 Meds/Allergies Meds Home Medications ?Medication ?Instructions ?Recorded ?Confirmed ?Type timolol maleate 0.5 % eye drops 1 drp ophthalmic-Right BID 02/26/25 02/28/25 History Wellbutrin XL 150 mg PO DAILY 02/28/25 02/28/25 History Allergies Allergies Allergy/AdvReac Type Severity Reaction Status Date / Time iodine [IODINE] Allergy Severe ANAPHYLAXIS Verified 02/26/25 13:50 shellfish derived Allergy Unknown ALLERGIC Verified 02/26/25 13:50 [SHELLFISH DERIVED] Mental Status Exam Mental Status Exam Narrative: Pt is alert and oriented; behavior is cooperative and calm; dressed in casual attire; mood is described as depressed ; eye contact appropriate; Speech is normal rate, volume and not pressured; thought process is organized and goal directed; Thought content is on tx; denies SI/HI/VH/AH. Assessment & Plan Assessment & Plan (1) MDD (major depressive disorder): Status: Acute Code(s): F32.9 - Major depressive disorder, single episode, unspecified (2) PTSD (post-traumatic stress disorder): Status: Acute Code(s): F43.10 - Post-traumatic stress disorder, unspecified (3) Cocaine use disorder: Status: Acute Code(s): F14.10 - Cocaine abuse, uncomplicated Plan Patient is a 50-year-old male with history of MDD, PTSD and cocaine use disorder who presented to ER via EMS from a hotel after being found running around the parking lot nude and reporting he intentionally used drugs to try to overdose. Plan: CV 15 minute safety checks obtain collateral encourage groups Started on by Dr. Jauregui: Zoloft 50mg PO daily Seroquel 25mg PO BID 0900,1500 Clonidine 0.05mg TID discharge planning Patient educated on: diagnosis, medication risk/benefits and therapeutic strategies Reason for continued inpatient stay Substantial Risk for: med/psych decompensation Statement Statement: I have reviewed the history and physical and performed a pertinent examination on my patient. No changes have occurred unless specified. If the History and Physical was not performed prior to admission, the Hospitalist's service will be consulted for completing the admission physical. Time Spent With Patient Time: Total time managing care of this patient today __60__ minutes.
[2025-03-02 20:00] VITALS: BP 118/77; PULSE 73; RESP 12; TEMP 36.9; O2SAT 96
[2025-03-02 20:25] VITALS: BP 118/77
[2025-03-02 20:27] VITALS: BP 118/77
[2025-03-02] MEDS: amLODIPine Besylate 2.5 MG TABLET PO (20:27)
[2025-03-02] MEDS: QUEtiapine Fumarate 100 MG TABLET PO (20:27)
[2025-03-03 07:58] VITALS: BP 128/90; PULSE 88; RESP 14; TEMP 36.4; O2SAT 96
[2025-03-03] MEDS: cloNIDine HCL 0.1 MG TABLET 0.05 MG PO ×3 (08:04→21:09)
[2025-03-03] MEDS: Sertraline HCL 50 MG TABLET PO (08:05)
[2025-03-03] MEDS: QUEtiapine Fumarate 25 MG TABLET PO ×2 (08:05→15:39)
--- NOTE | 2025-03-03 09:35 | P.PNPSI_ITS ---
Subjective Subjective Date of Service: 03/03/25 Reason For Visit: si Subjective Notes: Conditional Voluntary Interim History: Active on unit, social with peers. attending groups. Pt reports feeling he is improving; pt stated, I'm not 100% yet. I feel the medicine helps me . Pt reports sleeping well last night. showered. denies SI/HI/VH/AH. Blood pressure continues to be elevated; being followed by hospitalist. Medication Compliance: Yes Side effects from medications: No Attending Groups: Yes Mental Status Exam Mental Status Exam Patient Appearance: Well Grooomed Patient Orientation: Person, Place, Time and Situation Level of Consciousness: Awake and Alert Patient Behavior: Appropriate, Cooperative and Good Eye Contact Mood Description: Calm Affect Description: Calm Ability to Follow Directions: Good Speech Pattern: Clear and Appropriate Memory Description: Intact Hallucinations: None Delusions: Not Present Thought Process: Intact Thought Content: positive for Intact Diagnostics Vital Signs (24Hr): Vital Signs - 24 hr 03/02/25 14:27 03/02/25 20:00 03/02/25 20:25 Temperature 98.5 F Pulse Rate 73 Respiratory Rate 12 Blood Pressure 119/76 118/77 118/77 Pulse Oximetry 96 Oxygen Delivery Method Room Air 03/02/25 20:27 03/03/25 07:58 Temperature 97.5 F Pulse Rate 88 Respiratory Rate 14 Blood Pressure 118/77 128/90 H Pulse Oximetry 96 Oxygen Delivery Method Room Air BMI result Body Mass Index 32.9 Labs 03/03/25 10:47 Medications Medications Current Medications Acetaminophen (Acetaminophen 325 Mg Tablet) 650 mg PO Q6H PRN PRN Reason: Headache/Pain, Scale 1-10 Al Hydroxide/Mg Hydroxide (Magnesium Hydrox/Alum Hydrox 30 Ml Oral.Susp) 30 ml PO Q6H PRN PRN Reason: Heartburn/Nausea Amlodipine Besylate (Amlodipine Besylate 2.5 Mg Tablet) 2.5 mg PO BEDTIME [facility]; Protocol Last Admin: 03/02/25 20:27 Dose: 2.5 mg Clonidine HCl (Clonidine Hcl 0.1 Mg Tablet) 0.05 mg PO TID [facility]; Protocol Last Admin: 03/03/25 08:04 Dose: 0.05 mg Hydroxyzine HCl (Hydroxyzine Hcl 25 Mg Tablet) 25 mg PO Q6H PRN PRN Reason: mild anxiety Magnesium Hydroxide (Milk Of Magnesia 30 Ml Oral.Susp) 30 ml PO DAILY PRN PRN Reason: Constipation Nicotine Polacrilex (Nicotine Polacrilex 2 Mg Gum) 4 mg BUCCAL Q2H PRN PRN Reason: Nicotine Cravings Olanzapine (Olanzapine 5 Mg Tablet) 5 mg PO Q4H PRN PRN Reason: agitation Quetiapine Fumarate (Quetiapine Fumarate 25 Mg Tablet) 25 mg PO BID@0900,1500 [facility] Last Admin: 03/03/25 08:05 Dose: 25 mg Quetiapine Fumarate (Quetiapine Fumarate 100 Mg Tablet) 100 mg PO BEDTIME [facility] Last Admin: 03/02/25 20:27 Dose: 100 mg Quetiapine Fumarate (Quetiapine Fumarate 50 Mg Tablet) 50 mg PO BEDTIME PRN PRN Reason: insomnia Sertraline HCl (Sertraline Hcl 50 Mg Tablet) 50 mg PO DAILY [facility] Last Admin: 03/03/25 08:05 Dose: 50 mg Allergies Allergies Allergy/AdvReac Type Severity Reaction Status Date / Time iodine [IODINE] Allergy Severe ANAPHYLAXIS Verified 02/26/25 13:50 shellfish derived Allergy Unknown ALLERGIC Verified 02/26/25 13:50 [SHELLFISH DERIVED] Assessment & Plan Assessment & Plan (1) MDD (major depressive disorder): Status: Acute Code(s): F32.9 - Major depressive disorder, single episode, unspecified (2) PTSD (post-traumatic stress disorder): Status: Acute Code(s): F43.10 - Post-traumatic stress disorder, unspecified (3) Cocaine use disorder: Status: Acute Code(s): F14.10 - Cocaine abuse, uncomplicated Plan Patient is a 50-year-old male with history of MDD, PTSD and cocaine use disorder who presented to ER via EMS from a hotel after being found running around the parking lot nude and reporting he intentionally used drugs to try to overdose. Plan: CV 15 minute safety checks obtain collateral encourage groups Started on by Dr. Jauregui: Zoloft 50mg PO daily Seroquel 25mg PO BID 0900,1500 Clonidine 0.05mg TID discharge planning 03/03: Active on unit, social with peers. attending groups. Pt reports feeling he is improving; pt stated, I'm not 100% yet. I feel the medicine helps me . Pt reports sleeping well last night. showered. denies SI/HI/VH/AH. Blood pressure continues to be elevated; being followed by hospitalist. Patient educated on: diagnosis and medication risk/benefits Reason for continued inpatient stay Substantial Risk for: med/psych decompensation Time Spent With Patient Time: Total time managing care of this patient today _20___ minutes.
[2025-03-03 11:15] LABS: Alanine Aminotransferase 95 U/L (0-40); Albumin Level 4.5 g/dL (3.5-5.0); Alkaline Phosphatase 64 U/L (39-117); Anion Gap 13 (12-20); Aspartate Amino Transferase 92 U/L (5-37); Bilirubin Direct 0.2 mg/dL (0.0-0.5); Bilirubin Total 0.6 mg/dL (0.0-1.0); Blood Urea Nitrogen 22 mg/dL (9-16); Calcium 9.9 mg/dL (8.4-10.2); Carbon Dioxide 29 mmol/L (22-29); Chloride 103 mmol/L (96-108); Creatinine Clr Calc Pharmacy 73.3; Estimated Glomerular Filt Rate > 60; Glucose Random 81 mg/dL (60-115); Potassium 4.5 mmol/L (3.3-5.1); Sodium 140 mmol/L (135-145); Total Protein 7.5 g/dL (6.5-8.0)
[2025-03-03 11:18] LABS: Ammonia 38 umol/L (13-55)
[2025-03-03 15:37] VITALS: BP 136/104; PULSE 84
--- NOTE | 2025-03-03 16:09 | PM.EVENT ---
Event Note Date of Service: 03/03/25 Event Note: Blood pressures continued to be elevated, we will increase Norvasc to 5 mgs at hs. Time Spent With Patient Time: Total time managing care of this patient today ____ minutes.
[2025-03-03 16:37] VITALS: BP 127/92; PULSE 76
[2025-03-03 20:00] VITALS: BP 110/71; PULSE 71; RESP 16; TEMP 36.8; O2SAT 96
[2025-03-03 21:09] VITALS: BP 110/71
[2025-03-03] MEDS: amLODIPine Besylate 5 MG TABLET PO (21:09)
[2025-03-03] MEDS: QUEtiapine Fumarate 100 MG TABLET PO (21:10)
[2025-03-04 08:05] VITALS: BP 110/68; PULSE 79; RESP 16; TEMP 36.8; O2SAT 98
[2025-03-04] MEDS: cloNIDine HCL 0.1 MG TABLET 0.05 MG PO ×3 (08:33→20:54)
[2025-03-04] MEDS: Sertraline HCL 50 MG TABLET PO (08:34)
[2025-03-04] MEDS: QUEtiapine Fumarate 25 MG TABLET PO ×2 (08:34→15:28)
[2025-03-04 09:30] LABS: MANUAL DIFF FLAG NO
[2025-03-04 09:37] LABS: Basophils Absolute Auto 0.1 X10*3/uL (0.0-0.2); Basophils Percent Auto 0.9 % (0-2); Eosinophils Absolute Auto 0.5 X10*3/uL (0.0-0.4); Eosinophils Percent Auto 6.8 % (0-4); Hematocrit 48.9 % (42.0-52.0); Hemoglobin 16.4 g/dl (14.0-18.0); Imm Gran Abs Auto 0.04 X10*3/uL (0.00-0.03); Imm Gran Pct Auto 0.6 % (0.0-0.4); Lymphocytes Absolute Auto 1.7 X10*3/uL (1.2-4.9); Mean Corpuscular HGB Conc 33.5 g/dl (31.0-36.0); Mean Corpuscular Hemoglobin 30.8 pg (27.0-33.0); Mean Corpuscular Volume 91.7 fL (80.0-98.0); Mean Platelet Volume 10.8 fL (9.4-12.4); Monocytes Absolute Auto 0.6 X10*3/uL (0.1-1.2); Monocytes Percent Auto 8.5 % (2-11); Neutrophils Percent Auto 58.2 % (45-73); Platelet Count 236 X10*3/uL (160-400); Red Blood Count 5.33 X10*6/uL (4.60-5.80); Red Cell Distribution Width 13.2 % (11.0-16.0); White Blood Count 6.8 X10*3/uL (4.8-10.8)
[2025-03-04 09:55] LABS: Alanine Aminotransferase 84 U/L (0-40); Albumin Level 4.4 g/dL (3.5-5.0); Alkaline Phosphatase 64 U/L (39-117); Anion Gap 14 (12-20); Aspartate Amino Transferase 54 U/L (5-37); Bilirubin Total 0.6 mg/dL (0.0-1.0); Blood Urea Nitrogen 18 mg/dL (9-16); Calcium 9.9 mg/dL (8.4-10.2); Carbon Dioxide 24 mmol/L (22-29); Chloride 105 mmol/L (96-108); Creatinine Clr Calc Pharmacy 87.4; Estimated Glomerular Filt Rate > 60; Glucose Random 105 mg/dL (60-115); Potassium 3.9 mmol/L (3.3-5.1); Sodium 139 mmol/L (135-145); Total Protein 7.3 g/dL (6.5-8.0)
--- NOTE | 2025-03-04 10:34 | HO.PSYCHPN ---
Subjective Subjective Date of Service: 03/04/25 Reason For Visit: si Subjective Notes: Conditional Voluntary Interim History: Pt sleep is disrupted, waking up at 2am or so. Increase seroquel to 100mg po qhs. He reports mood is okay and denies any SI/HI. he reports less voices. Does not present as internally preoccupied. No behavioral concerns. Medication Compliance: Yes Review of Systems Review of Systems Denies any shortness of breath, chest pain, dizziness, lightheadedness, abdominal pain or discomfort, nausea vomiting or diarrhea Mental Status Exam Mental Status Exam Narrative: Pt is alert and oriented; behavior is cooperative and calm; dressed in casual attire; mood is described as depressed ; eye contact appropriate; Speech is normal rate, volume and not pressured; thought process is organized and goal directed; Thought content is on tx; denies SI/HI/VH/AH. Diagnostics Vital Signs (24Hr): Vital Signs - 24 hr 03/03/25 15:37 03/03/25 16:37 03/03/25 20:00 Temperature 98.2 F Pulse Rate 84 76 71 Respiratory Rate 16 Blood Pressure 136/104 H 127/92 H 110/71 Pulse Oximetry 96 Oxygen Delivery Method Room Air 03/03/25 21:09 03/03/25 21:09 03/04/25 08:05 Temperature 98.2 F Pulse Rate 79 Respiratory Rate 16 Blood Pressure 110/71 110/71 110/68 Pulse Oximetry 98 Oxygen Delivery Method Room Air BMI result Body Mass Index 32.9 Labs 03/04/25 09:07 03/04/25 09:07 Labs: Laboratory Results - last 48 hr 03/03/25 03/04/25 10:47 09:07 WBC 6.8 RBC 5.33 Hgb 16.4 Hct 48.9 MCV 91.7 MCH 30.8 MCHC 33.5 RDW 13.2 Plt Count 236 MPV 10.8 Immature Gran % (Auto) 0.6 H Neut % (Auto) 58.2 Lymph % (Auto) 25.0 [place] % (Auto) 8.5 Eos % (Auto) 6.8 H Baso % (Auto) 0.9 Lymph # (Auto) 1.7 [place] # (Auto) 0.6 Eos # (Auto) 0.5 H Baso # (Auto) 0.1 Abs Immat Gran (auto) 0.04 H Absolute Neuts (auto) 4.0 Absolute Nucleated RBC 0.000 Nucleated RBC % (auto) 0.0 Sodium 140 139 Potassium 4.5 3.9 Chloride 103 105 Carbon Dioxide 29 24 Anion Gap 13 14 BUN 22 H 18 H Creatinine 1.24 1.04 Estim Creat Clear Calc 73.3 87.4 Estimated GFR > 60 > 60 Random Glucose 81 105 Calcium 9.9 9.9 Total Bilirubin 0.6 0.6 Direct Bilirubin 0.2 AST 92 H 54 H ALT 95 H 84 H Alkaline Phosphatase 64 64 Ammonia 38 Total Protein 7.5 7.3 Albumin 4.5 4.4 Medications Medications Current Medications Acetaminophen (Acetaminophen 325 Mg Tablet) 650 mg PO Q6H PRN PRN Reason: Headache/Pain, Scale 1-10 Al Hydroxide/Mg Hydroxide (Magnesium Hydrox/Alum Hydrox 30 Ml Oral.Susp) 30 ml PO Q6H PRN PRN Reason: Heartburn/Nausea Amlodipine Besylate (Amlodipine Besylate 5 Mg Tablet) 5 mg PO BEDTIME [facility]; Protocol Last Admin: 03/03/25 21:09 Dose: 5 mg Clonidine HCl (Clonidine Hcl 0.1 Mg Tablet) 0.05 mg PO TID [facility]; Protocol Last Admin: 03/04/25 08:33 Dose: 0.05 mg Hydroxyzine HCl (Hydroxyzine Hcl 25 Mg Tablet) 25 mg PO Q6H PRN PRN Reason: mild anxiety Magnesium Hydroxide (Milk Of Magnesia 30 Ml Oral.Susp) 30 ml PO DAILY PRN PRN Reason: Constipation Nicotine Polacrilex (Nicotine Polacrilex 2 Mg Gum) 4 mg BUCCAL Q2H PRN PRN Reason: Nicotine Cravings Olanzapine (Olanzapine 5 Mg Tablet) 5 mg PO Q4H PRN PRN Reason: agitation Quetiapine Fumarate (Quetiapine Fumarate 25 Mg Tablet) 25 mg PO BID@0900,1500 [facility] Last Admin: 03/04/25 08:34 Dose: 25 mg Quetiapine Fumarate (Quetiapine Fumarate 100 Mg Tablet) 100 mg PO BEDTIME [facility] Last Admin: 03/03/25 21:10 Dose: 100 mg Quetiapine Fumarate (Quetiapine Fumarate 50 Mg Tablet) 50 mg PO BEDTIME PRN PRN Reason: insomnia Sertraline HCl (Sertraline Hcl 50 Mg Tablet) 50 mg PO DAILY [facility] Last Admin: 03/04/25 08:34 Dose: 50 mg Allergies Allergies Allergy/AdvReac Type Severity Reaction Status Date / Time iodine [IODINE] Allergy Severe ANAPHYLAXIS Verified 02/26/25 13:50 shellfish derived Allergy Unknown ALLERGIC Verified 02/26/25 13:50 [SHELLFISH DERIVED] Assessment & Plan Assessment & Plan (1) MDD (major depressive disorder): Status: Acute Code(s): F32.9 - Major depressive disorder, single episode, unspecified (2) PTSD (post-traumatic stress disorder): Status: Acute Code(s): F43.10 - Post-traumatic stress disorder, unspecified (3) Cocaine use disorder: Status: Acute Code(s): F14.10 - Cocaine abuse, uncomplicated Plan Patient is a 50-year-old male with history of MDD, PTSD and cocaine use disorder who presented to ER via EMS from a hotel after being found running around the parking lot nude and reporting he intentionally used drugs to try to overdose. Plan: CV 15 minute safety checks obtain collateral encourage groups Started on by Dr. Jauregui: Zoloft 50mg PO daily Seroquel 25mg PO BID 0900,1500 Clonidine 0.05mg TID discharge planning 03/03: Active on unit, social with peers. attending groups. Pt reports feeling he is improving; pt stated, I'm not 100% yet. I feel the medicine helps me . Pt reports sleeping well last night. showered. denies SI/HI/VH/AH. Blood pressure continues to be elevated; being followed by hospitalist. 03/04 increase seroquel to 100mg po qhs. Reason for continued inpatient stay Substantial Risk for: inability to function Time Spent With Patient Time: Total time managing care of this patient today ____ minutes.
[2025-03-04 15:28] VITALS: BP 134/96
[2025-03-04 20:00] VITALS: BP 115/70; PULSE 83; RESP 16; TEMP 36.9; O2SAT 96
[2025-03-04 20:54] VITALS: BP 115/70
[2025-03-04 20:55] VITALS: BP 115/70
[2025-03-04] MEDS: amLODIPine Besylate 5 MG TABLET PO (20:55)
[2025-03-04] MEDS: QUEtiapine Fumarate 50 MG TABLET 150 MG PO (20:56)
[2025-03-05 08:23] VITALS: BP 120/81; PULSE 93; RESP 16; TEMP 37.2; O2SAT 98
[2025-03-05] MEDS: Sertraline HCL 50 MG TABLET PO (08:27)
[2025-03-05] MEDS: QUEtiapine Fumarate 25 MG TABLET PO ×2 (08:27→15:26)
[2025-03-05] MEDS: cloNIDine HCL 0.1 MG TABLET 0.05 MG PO ×3 (08:27→21:11)
[2025-03-05 15:26] VITALS: BP 154/90
[2025-03-05 20:30] VITALS: BP 109/52; PULSE 84; RESP 16; TEMP 36.7; O2SAT 93
[2025-03-05] MEDS: amLODIPine Besylate 5 MG TABLET PO (21:11)
[2025-03-05] MEDS: traZODone HCL 100 MG TABLET PO (21:11)
[2025-03-05] MEDS: QUEtiapine Fumarate 50 MG TABLET 150 MG PO (21:11)
--- NOTE | 2025-03-05 21:50 | HO.PSYCHPN ---
Subjective Subjective Date of Service: 03/05/25 Reason For Visit: si Subjective Notes: Conditional Voluntary Interim History: Pt reports he did not sleep as well despite increase in seroquel. we discussed adding schedule trazodone qhs. He reports mood is okay and denies any SI/HI. he reports less voices. Does not present as internally preoccupied. No behavioral concerns. Review of Systems Review of Systems Denies any shortness of breath, chest pain, dizziness, lightheadedness, abdominal pain or discomfort, nausea vomiting or diarrhea Mental Status Exam Mental Status Exam Narrative: Pt is alert and oriented; behavior is cooperative and calm; dressed in casual attire; mood is described as depressed ; eye contact appropriate; Speech is normal rate, volume and not pressured; thought process is organized and goal directed; Thought content is on tx; denies SI/HI/VH/AH. Diagnostics Vital Signs (24Hr): Vital Signs - 24 hr 03/05/25 08:23 03/05/25 15:26 03/05/25 20:30 Temperature 99.0 F 98.0 F Pulse Rate 93 84 Respiratory Rate 16 16 Blood Pressure 120/81 154/90 H 109/52 L Pulse Oximetry 98 93 Oxygen Delivery Method Room Air Room Air BMI result Body Mass Index 32.9 Labs 03/04/25 09:07 03/04/25 09:07 Labs: Laboratory Results - last 48 hr 03/04/25 09:07 WBC 6.8 RBC 5.33 Hgb 16.4 Hct 48.9 MCV 91.7 MCH 30.8 MCHC 33.5 RDW 13.2 Plt Count 236 MPV 10.8 Immature Gran % (Auto) 0.6 H Neut % (Auto) 58.2 Lymph % (Auto) 25.0 [place] % (Auto) 8.5 Eos % (Auto) 6.8 H Baso % (Auto) 0.9 Lymph # (Auto) 1.7 [place] # (Auto) 0.6 Eos # (Auto) 0.5 H Baso # (Auto) 0.1 Abs Immat Gran (auto) 0.04 H Absolute Neuts (auto) 4.0 Absolute Nucleated RBC 0.000 Nucleated RBC % (auto) 0.0 Sodium 139 Potassium 3.9 Chloride 105 Carbon Dioxide 24 Anion Gap 14 BUN 18 H Creatinine 1.04 Estim Creat Clear Calc 87.4 Estimated GFR > 60 Random Glucose 105 Calcium 9.9 Total Bilirubin 0.6 AST 54 H ALT 84 H Alkaline Phosphatase 64 Total Protein 7.3 Albumin 4.4 Medications Medications Current Medications Acetaminophen (Acetaminophen 325 Mg Tablet) 650 mg PO Q6H PRN PRN Reason: Headache/Pain, Scale 1-10 Al Hydroxide/Mg Hydroxide (Magnesium Hydrox/Alum Hydrox 30 Ml Oral.Susp) 30 ml PO Q6H PRN PRN Reason: Heartburn/Nausea Amlodipine Besylate (Amlodipine Besylate 5 Mg Tablet) 5 mg PO BEDTIME [facility]; Protocol Last Admin: 03/05/25 21:11 Dose: 5 mg Clonidine HCl (Clonidine Hcl 0.1 Mg Tablet) 0.05 mg PO TID [facility]; Protocol Last Admin: 03/05/25 21:11 Dose: 0.05 mg Hydroxyzine HCl (Hydroxyzine Hcl 25 Mg Tablet) 25 mg PO Q6H PRN PRN Reason: mild anxiety Loperamide HCl (Loperamide Hcl 2 Mg Capsule) 2 mg PO Q4H PRN PRN Reason: loose stools Magnesium Hydroxide (Milk Of Magnesia 30 Ml Oral.Susp) 30 ml PO DAILY PRN PRN Reason: Constipation Nicotine Polacrilex (Nicotine Polacrilex 2 Mg Gum) 4 mg BUCCAL Q2H PRN PRN Reason: Nicotine Cravings Olanzapine (Olanzapine 5 Mg Tablet) 5 mg PO Q4H PRN PRN Reason: agitation Quetiapine Fumarate (Quetiapine Fumarate 25 Mg Tablet) 25 mg PO BID@0900,1500 [facility] Last Admin: 03/05/25 15:26 Dose: 25 mg Quetiapine Fumarate (Quetiapine Fumarate 50 Mg Tablet) 50 mg PO BEDTIME PRN PRN Reason: insomnia Quetiapine Fumarate (Quetiapine Fumarate 50 Mg Tablet) 150 mg PO BEDTIME [facility] Last Admin: 03/05/25 21:11 Dose: 150 mg Sertraline HCl (Sertraline Hcl 50 Mg Tablet) 50 mg PO DAILY [facility] Last Admin: 03/05/25 08:27 Dose: 50 mg Trazodone HCl (Trazodone Hcl 100 Mg Tablet) 100 mg PO BEDTIME [facility] Last Admin: 03/05/25 21:11 Dose: 100 mg Allergies Allergies Allergy/AdvReac Type Severity Reaction Status Date / Time iodine [IODINE] Allergy Severe ANAPHYLAXIS Verified 02/26/25 13:50 shellfish derived Allergy Unknown ALLERGIC Verified 02/26/25 13:50 [SHELLFISH DERIVED] Assessment & Plan Assessment & Plan (1) MDD (major depressive disorder): Status: Acute Code(s): F32.9 - Major depressive disorder, single episode, unspecified (2) PTSD (post-traumatic stress disorder): Status: Acute Code(s): F43.10 - Post-traumatic stress disorder, unspecified (3) Cocaine use disorder: Status: Acute Code(s): F14.10 - Cocaine abuse, uncomplicated Plan Patient is a 50-year-old male with history of MDD, PTSD and cocaine use disorder who presented to ER via EMS from a hotel after being found running around the parking lot nude and reporting he intentionally used drugs to try to overdose. Plan: CV 15 minute safety checks obtain collateral encourage groups Started on by Dr. Jauregui: Zoloft 50mg PO daily Seroquel 25mg PO BID 0900,1500 Clonidine 0.05mg TID discharge planning 03/03: Active on unit, social with peers. attending groups. Pt reports feeling he is improving; pt stated, I'm not 100% yet. I feel the medicine helps me . Pt reports sleeping well last night. showered. denies SI/HI/VH/AH. Blood pressure continues to be elevated; being followed by hospitalist. 03/04 increase seroquel at bedtime 03/05 added trazodone for sleep in addition to higher dose of seroquel Reason for continued inpatient stay Substantial Risk for: inability to function Time Spent With Patient Time: Total time managing care of this patient today ____ minutes.
[2025-03-06 08:01] VITALS: BP 115/76; PULSE 95; RESP 14; TEMP 36.4; O2SAT 97
[2025-03-06] MEDS: cloNIDine HCL 0.1 MG TABLET 0.05 MG PO (08:14)
[2025-03-06] MEDS: QUEtiapine Fumarate 25 MG TABLET PO (08:14)
[2025-03-06] MEDS: Sertraline HCL 50 MG TABLET PO (08:14)
--- NOTE | 2025-03-06 09:43 | P.DS_ITS ---
DS: Providers Provider Date of Service: 03/06/25 Date of admission: 02/28/25 14:34 Date of discharge: 03/06/25 Primary care physician: Dawit Physician Admitting clinician: Tanesha Pandey Attending physician on admission: Marcos Kenny Attending physician on discharge: Marcos Kenny Discharging clinician: Tanesha Pandey DS: Diagnosis Discharge Diagnosis (1) MDD (major depressive disorder): Status: Acute (2) PTSD (post-traumatic stress disorder): Status: Acute (3) Cocaine use disorder: Status: Acute DS: Medications Discharge Medications Home Medications: Home Medications ?Medication ?Instructions ?Recorded ?Confirmed timolol maleate 0.5 % eye drops 1 drp ophthalmic-Right BID 02/26/25 02/28/25 Wellbutrin XL 150 mg PO DAILY 02/28/25 02/28/25 Mental Status Exam Mental Status Exam Narrative: Pt is alert and oriented; behavior is cooperative, friendly and calm; dressed in casual attire; mood is described as good ; eye contact appropriate; Speech is normal rate, volume and not pressured; thought process is organized; Thought content is on discharge; denies SI/HI/VH/AH. Data Data Completed and Pending Completed studies during hospitalization [Text1]: 03/01/25 03/03/25 03/04/25 08:08 10:47 09:07 WBC 6.8 RBC 5.33 Hgb 16.4 Hct 48.9 MCV 91.7 MCH 30.8 MCHC 33.5 RDW 13.2 Plt Count 236 MPV 10.8 Immature Gran % (Auto) 0.6 H Neut % (Auto) 58.2 Lymph % (Auto) 25.0 [place] % (Auto) 8.5 Eos % (Auto) 6.8 H Baso % (Auto) 0.9 Lymph # (Auto) 1.7 [place] # (Auto) 0.6 Eos # (Auto) 0.5 H Baso # (Auto) 0.1 Abs Immat Gran (auto) 0.04 H Absolute Neuts (auto) 4.0 Absolute Nucleated RBC 0.000 Nucleated RBC % (auto) 0.0 Sodium 142 140 139 Potassium 5.1 D 4.5 3.9 Chloride 107 103 105 Carbon Dioxide 29 29 24 Anion Gap 11 L 13 14 BUN 12 22 H 18 H Creatinine 1.03 1.24 1.04 Estim Creat Clear Calc TNP 73.3 87.4 Estimated GFR > 60 > 60 > 60 Random Glucose 93 81 105 Estimat Average Glucose 108 Hemoglobin A1c % 5.4 Calcium 9.6 D 9.9 9.9 Total Bilirubin 0.8 0.6 0.6 Direct Bilirubin 0.2 AST 92 H 92 H 54 H ALT 42 H 95 H 84 H Alkaline Phosphatase 58 64 64 Ammonia 38 Total Protein 7.0 7.5 7.3 Albumin 4.4 4.5 4.4 Triglycerides 159 H Cholesterol 209 H LDL Cholesterol, Calc 120 H HDL Cholesterol 58 DS: Summary Hospital Course Hospital Course: Patient is a 50-year-old male with history of MDD, PTSD and cocaine use disorder who presented to ER via EMS from a hotel after being found running around the parking lot nude and reporting he intentionally used drugs to try to overdose. Per crisis report, patient was reportedly found nude, running around the parking lot of a hotel. Police reportedly found crack cocaine drug paraphernalia. Patient reports he intentionally use drugs to try to overdose and end his life. Upon crisis assessment patient denies SI/HI. Patient reports that he got into a verbal altercation with his and rented a hotel room. He reports increasing depression and has been off of his psychiatric medications for 2 years. He reportedly had been experiencing command auditory hallucinations telling him to harm himself. Patient reports that he began hearing voices before he use drugs and states that he has heard voices in the past when he is severely depressed. He reports poor sleep and appetite. Denies HI/VH. Patient reports 6 inpatient hospitalizations while living in [place]. History of 2 suicide attempts via overdosing on medications. History of cocaine use. He reports being sober for 3-4 years prior to his relapse. History of detox admissions. Utox positive for cocaine and benzodiazepines. During admission assessment, patient presents alert and oriented x3. Calm and cooperative. Patient reports feeling depressed; patient stated, I don't remember anything that happened. I wanted to hurt myself because of the voices. They were telling me to kill myself. When I'm depressed I start to hear voices but medication helps . Patient denies SI/HI/VH/AH. Patient reports he can not recall what occurred prior to admission. Patient stated, I have been clean for years. I don't remember anything that happened . Patient reports he has a prescriber appointment set up with [facility] in [place] in a few weeks. Plan: CV 15 minute safety checks obtain collateral encourage groups Started on by Dr. Jauregui: Zoloft 50mg PO daily Seroquel 25mg PO BID 0900,1500 Clonidine 0.05mg TID discharge planning Active on unit, social with peers. attending groups. Pt reports feeling he is improving; pt stated, I'm not 100% yet. I feel the medicine helps me . Pt reports sleeping well last night. showered. denies SI/HI/VH/AH. Blood pressure continues to be elevated; being followed by hospitalist. increase seroquel at bedtime added trazodone for sleep in addition to higher dose of seroquel Patient reports feeling good and ready for discharge. denies SI/HI/VH/AH. Pt reports he plans on following up with his outpatient providers. Status at Discharge Cognitive/behavioral status at discharge: Patient has insight and demonstrates good judgment in terms of wanting to pursue treatment. Patient has a safety plan that includes presenting to the closest ER or calling 911 if feeling unsafe. Functional status at discharge: independent ambulation Overall status at discharge: patient is back to baseline Time Spent with Patient Time attestation: Total time managing care of this patient today _20___ minutes. Time spent: Less than 30 minutes Discharge Plan Discharge Anticipated Discharge Date/Time: 03/06/25 11:00 Patient Disposition: Home, Self-Care Discharge Diagnosis: MDD, PTSD, Cocaine use d/o Referrals: [facility] [Other] - 03/13/25 (Please follow up with your outpatient providers. ) Holli Adames MD [Physician] - 1 Week Discharge Medications: New sertraline 50 mg Tablet 50 mg PO DAILY 30 Days Qty: 30 0RF trazodone 100 mg Tablet 100 mg PO BEDTIME 30 Days Qty: 30 0RF quetiapine 150 mg tablet 150 mg PO BEDTIME 30 Days Qty: 30 0RF quetiapine 25 mg Tablet 25 mg PO BID@0900,1500 30 Days Qty: 60 0RF amlodipine 5 mg Tablet 5 mg PO BEDTIME 30 Days Qty: 30 0RF Protocol: Hold for SBP< HOLD for SBP < : 90 clonidine HCl 0.1 mg Tablet 0.05 mg PO TID 30 Days Qty: 45 0RF Protocol: Hold for SBP< HOLD for SBP < : 90 Continued timolol maleate 0.5 % drops 1 drp ophthalmic-Right BID Discontinued Wellbutrin XL 150 mg PO DAILY Discharge Orders: Discharge Order (Routine); Ordered 03/06/25 Ordered By: Tanesha Pandey Diet: Regular diet Activity on Discharge: As tolerated Stand Alone Forms: Patient Portal Discharge page, Community Support Print Language: Occitan Care Plan Goals: Maintain mood and safe behaviors Take medications as prescribed Continue to pursue sobriety Practice coping skills Continue with outpatient providers and reach out to them as needed Health Concerns: Mood stability and behaviors Sobriety Plan of Treatment: Follow up with your PCP, psychiatric provider and other outpatient providers regarding above concerns Take medications as prescribed Assessment: Patient has insight and demonstrates good judgment in terms of wanting to pursue treatment. Patient has a safety plan that includes presenting to the closest ER or calling 911 if feeling unsafe. Discharge Date/Time: 03/06/25 10:48
[2025-03-06] MEDS: Naloxone HCl Nasal TAKE HOME 4 MG SPRAY 8 MG NOSTRILALT (10:28)
== END 2025-03-06 10:48 | disposition home or self-care (01) | DRG 754 ==
PROVIDERS: Nurse Practitioner Family; Admitting Provider Nurse Practitioner Acute Care; Responsible Provider Registered Nurse; Visit Provider Psychiatry & Neurology Psychiatry
DX: F32.9 Major depressive disorder, single episode, unspecified (principal); R45.851 Suicidal ideations; F41.9 Anxiety disorder, unspecified; F14.10 Cocaine abuse, uncomplicated; I10 Essential (primary) hypertension; F43.10 Post-traumatic stress disorder, unspecified; Z79.899 Other long term (current) drug therapy
CPT/HCPCS: 36415; 80048; 80053; 80061; 80076; 82140; 83036; 85025

== ENCOUNTER → 2025-02-28 14:34 | Outpatient (BNV) | payer OTHER, SELFPAY | PROVIDERS: Admitting Provider Nurse Practitioner Acute Care; Visit Provider Psychiatry & Neurology Psychiatry | DX: F32.2 Major depressive disorder, single episode, severe without psychotic features (principal); F41.9 Anxiety disorder, unspecified | CPT/HCPCS: 99233 ==

== ENCOUNTER → 2025-02-28 14:34 | Outpatient (BNV) | payer OTHER, SELFPAY | PROVIDERS: Admitting Provider Nurse Practitioner Acute Care; Responsible Provider Registered Nurse; Visit Provider Nurse Practitioner Family | DX: I10 Essential (primary) hypertension (principal) | CPT/HCPCS: 99231; 99499 ==